=== PATIENT | male | born 1945 | race Caucasian/White ===

== ENCOUNTER 2018-11-28 08:08 | Inpatient (IN) | payer MEDICARE, OTHER ==
[2018-11-28] MEDS ORDERED: Lidocaine 2% Inj (20ml) ONE (08:24)
[2018-11-28] MEDS ORDERED: Phenylephrine 10 mg/ml Inj ONE (08:25)
[2018-11-28] MEDS ORDERED: Iodixanol 320 MG/ML 100 ML BOTTLE IV ONE (08:26)
[2018-11-28] MEDS ORDERED: Iodixanol 320 MG/ML 200 ML BOTTLE IV ONE (08:26)
[2018-11-28] MEDS ORDERED: Nitroglycerin 50mg in D5W 50 MG/250 ML BOTTLE IV ONE (08:26)
[2018-11-28] MEDS ORDERED: Iohexol 350mgl/ml 50 ML ONE (08:26)
--- NOTE | 2018-11-28 08:26 | ED PDOC ---
Arrival/HPI - General Chief Complaint: Respiratory Distress Historian: Patient, EMS EM Caveat: Acuity of Condition - History of Present Illness Narrative History of Present Illness (Text): 11/28/18 08:18 73 year old male, whose past medical history includes diabetes, prostate cancer, and asthma, presents to the emergency department brought in by EMS for STEMI. EMS reports patient called 911 for shortness of breath and but him on CiPAP. EMS also notes administering 324mg of Aspirin, sublingual nitroglycerine, and 20mg of Lasix after noticing ST elevations on EKG. Patient denies chest pain. Daughter (who arrived after the patient was transferred to the clinical laboratory science professor and provided additional hx) states she and the patient were at home preparing to go to his doctor's for a stress test, when he told her to call 911 because he was not feeling well and had trouble breathing. HPI and ROS are limited due to patient's acuity of condition. PMD: Dr. Natalie Seals Time/Duration: Prior to Arrival Symptom Onset: Gradual Symptom Course: Unchanged Activities at Onset: Light Context: Home Past Medical History - Provider Review Nursing Documentation Reviewed: Yes - Cardiac Hx Cardiac Disorders: Yes Hx Hypertension: Yes - Pulmonary Hx Respiratory Disorders: No - Neurological Hx Neurological Disorder: No - HEENT Hx HEENT Disorder: No - Renal Hx Renal Disorder: No - Endocrine/Metabolic Hx Endocrine Disorders: Yes Hx Diabetes Mellitus Type 2: Yes - Hematological/Oncological Hx Blood Disorders: No - Integumentary Hx Dermatological Disorder: No - Musculoskeletal/Rheumatological Hx Musculoskeletal Disorders: No - Gastrointestinal Hx Gastrointestinal Disorders: No - Genitourinary/Gynecological Hx Genitourinary Disorders: No - Psychiatric Hx Psychophysiologic Disorder: No Hx Emotional Abuse: No Hx Physical Abuse: No Hx Substance Use: No - Anesthesia Hx Anesthesia: Yes Hx Anesthesia Reactions: No Hx Malignant Hyperthermia: No - Suicidal Assessment Feels Threatened In Home Enviroment: No Family/Social History - Physician Review Nursing Documentation Reviewed: Yes Family/Social History: No Known Family HX Smoking Status: Never Smoked Hx Alcohol Use: Yes Frequency of alcohol use: Socially Hx Substance Use: No Allergies/Home Meds Allergies/Adverse Reactions: Allergies Penicillins Allergy (Verified 11/28/18 08:28) URTICARIA sesame seed Allergy (Verified 11/28/18 08:28) RASH Home Medications: Home Meds Medication Instructions Recorded Confirmed Carvedilol [Coreg] 6.25 mg PO DAILY 09/06/17 11/28/18 Insulin Aspart [Novolog FLEXPEN] 4 unit SQ TID 09/06/17 11/28/18 Simvastatin [Zocor] 40 mg PO DAILY 09/06/17 11/28/18 Insulin Degludec [Tresiba 40 units SC DAILY 11/28/18 11/28/18 Flextouch U-100] Montelukast [Singulair] 10 mg PO DAILY 11/28/18 11/28/18 Olmesartan Medoxomil [Benicar] 20 mg PO DAILY 11/28/18 11/28/18 Sitagliptin Phos/Metformin HCl 1 tab PO BID 11/28/18 11/28/18 [Janumet 50-1,000 mg Tablet] Review of Systems - Review of Systems Systems not reviewed;Unavailable: Acuity of Condition Cardiovascular: absent: Chest Pain Physical Exam Vital Signs Reviewed: Yes Temperature: Afebrile Blood Pressure: Normal Pulse: Tachycardic Respiratory Rate: Other (dyspneic) Appearance: Positive for: Uncomfortable Mental Status: Positive for: Alert and Oriented X 3 - Systems Exam Head: Present: Atraumatic, Normocephalic Pupils: Present: PERRL Extroacular Muscles: Present: EOMI Conjunctiva: Present: Normal Mouth: Present: Moist Mucous Membranes Neck: Present: Normal Range of Motion Respiratory/Chest: Present: Clear to Auscultation, Good Air Exchange, Respiratory Distress (mild respiratory distress ), Other (dyspneic). No: Accessory Muscle Use Cardiovascular: Present: Normal S1, S2, Tachycardic. No: Murmurs Abdomen: No: Tenderness, Distention, Peritoneal Signs Back: Present: Normal Inspection Upper Extremity: Present: Normal Inspection. No: Cyanosis, Edema Lower Extremity: Present: Normal Inspection. No: Edema Neurological: Present: GCS=15, CN II-XII Intact, Speech Normal Skin: Present: Warm, Dry, Normal Color. No: Rashes Psychiatric: Present: Alert, Oriented x 3, Normal Insight, Normal Concentration Medical Decision Making ED Course and Treatment: 11/28/18 08:10 Impression: 73 year old male who presents to the emergency department complaining of STEMI. Plan: -- Labs -- Chest X-ray -- Briinta -- Heparin -- EKG -- labelling machine operator -- Reassess and disposition Progress Notes: 11/28/18 08:10 Patient seen immediately upon arrival. 11/28/18 08:16 Code heart called. 11/28/18 08:[address] Ramírez who requested administering 180 Brilinta, 5000 bolus of heparin, and then send to catheterization lab. 11/28/18 08:[address] Guallpa, internal medicine religion teacher, who accepts patient into his service. - Lab Interpretations I have reviewed the lab results: Yes - RAD Interpretation Iron Erector: Radiologist - EKG Interpretation EKG Interpretation (Text): 11/28/18 08:33 EKG reviewed by me, shows: Sinus tachycardia 110bpm, normal axis, normal intervals, ST elevation on V2 and V3, and with T wave inversions in the lateral leads. Interpreted by ED Physician: Yes Type: 12 lead EKG - Scribe Statement The provider has reviewed the documentation as recorded by the Scribe Xiomara Cosme Provider Scribe Attestation: All medical record entries made by the Scribe were at my direction and personally dictated by me. I have reviewed the chart and agree that the record accurately reflects my personal performance of the history, physical exam, medical decision making, and the department course for this patient. I have also personally directed, reviewed, and agree with the discharge instructions and disposition. Disposition/Present on Arrival - Present on Arrival Any Indicators Present on Arrival: No History of DVT/PE: No History of Uncontrolled Diabetes: No Urinary Catheter: No History of Decub. Ulcer: No History Surgical Site Infection Following: None - Disposition Have Diagnosis and Disposition been Completed?: Yes Diagnosis: STEMI (ST elevation myocardial infarction) Disposition: HOSPITALIZED Disposition Time: 08:20 Patient Plan: Admission Condition: FAIR
[2018-11-28 08:32] LABS: BASO # 0.06 K/mm3 (0.0-2.0); BASO % 0.4 % (0.0-3.0); EOS # 0.3 (0.0-0.7); HEMOGLOBIN 14.8 g/dL (14.0-18.0); LYMPH # 3.1 (1.2-3.4); LYMPH % 19.2 % (22.0-35.0); MEAN CORPUSCULAR HEMOGLOBIN 28.7 pg (25.0-35.0); MEAN CORPUSCULAR HGB CONC 32.6 g/dl (31.0-37.0); MEAN PLATELET VOLUME 11.6 fl (7.0-11.0); MONO # 0.9 (0.1-0.6); MONO % 5.2 % (1.0-6.0); RBC 5.16 10^6/uL (3.5-6.1); RED CELL DISTRIBUTION WIDTH 14.3 % (11.5-14.5); WHITE BLOOD COUNT 16.2 10^3/uL (4.5-11.0)
[2018-11-28] MEDS ORDERED: Midazolam 2 MG/2 ML VIAL ONE ×2 (08:35→08:40)
[2018-11-28 08:36] LABS: INR 1.07; PROTHROMBIN TIME 12.1 SECONDS (9.4-12.5)
[2018-11-28 08:38] LABS: ALB/GLOB RATIO 1.4 (1.1-1.8); ALBUMIN 4.7 g/dL (3.0-4.8); ALT/SGPT 33 U/L (7-56); AST/SGOT 38 U/L (17-59); BLOOD UREA NITROGEN 14 mg/dL (7-21); CALCIUM 9.2 mg/dL (8.4-10.5); GFR NON-AFRICAN AMERICAN > 60
[2018-11-28 08:50] LABS: TROPONIN I 0.01 ng/mL
[2018-11-28] MEDS ORDERED: Eptifibatide 20 mg/10mL Inj IVP ONE (08:55)
[2018-11-28] MEDS ORDERED: Eptifibatide 0.75 mg/ml 75 MG/100 ML BOTTLE IV ONE (08:55)
[2018-11-28] MEDS ORDERED: Sodium Chloride 0.9% 1,000 ML IV SCH (09:00)
[2018-11-28] MEDS: Eptifibatide 0.75 mg/ml 75 MG/100 ML BOTTLE IV SCH ×3 (09:00→19:08)
--- NOTE | 2018-11-28 09:14 | CP.PCM.PN ---
Subjective - Date & Time of Evaluation Date of Evaluation: 11/28/18 Time of Evaluation: 07:35 - Subjective Subjective: CODE HEART NOTE Code Heart was called at 732AM. Patient was evaluated in Emergency Department. Patient was found to have acute STEMI. EKG showing ST elevations in anterior and lateral leads. Patient taken to labor arbitrator with Dr. Ramírez. Integrlin and Heparin were given as was oxygen supplementation. Patient transported to powerhouse laborer under direct supervision of electronic semiconductor processor team until appropriate transfer of care to Dr. Ramírez. Objective - Vital Signs/Intake and Output Vital Signs (last 24 hours): Temp Pulse Resp BP Pulse Ox 97.1 F L 109 H 26 H 155/81 H 95 11/28/18 08:15 11/28/18 08:15 11/28/18 08:56 11/28/18 08:15 11/28/18 08:56 - Medications Medications: Current Medications Acetaminophen (Tylenol 325mg Tab) 650 mg PO Q4H PRN PRN Reason: Pain, Mild (1-3) Aspirin (Ecotrin) 81 mg PO DAILY [facility] Atorvastatin Calcium (Lipitor) 80 mg PO DIN [facility] Carvedilol (Coreg) 12.5 mg PO Q12H [facility] Furosemide (Lasix) 40 mg IV BID [facility] Eptifibatide (Integrilin) 75 mg in 100 mls @ 19.45 mls/hr IV .Q5H9M [facility]; Prot ocol Stop: 11/29/18 03:01 Sodium Chloride (Sodium Chloride 0.9%) 1,000 mls @ 100 mls/hr IV .Q10H [facility] Stop: 11/28/18 12:01 Losartan Potassium (Cozaar) 25 mg PO DAILY [facility] Ticagrelor (Brilinta) 90 mg PO BID [facility] - Labs Labs: 11/28/18 08:23 11/28/18 08:23 PT 12.1 SECONDS (9.4-12.5) 11/28/18 08:23 INR 1.07 11/28/18 08:23
--- NOTE | 2018-11-28 09:18 | CP.PCM.CON ---
<Amanuel Avila - Last Filed: 11/28/18 12:33> History of Present Illness - History of Present Illness History of Present Illness: CRITICAL CARE CONSULT NOTE FOR DR. ABDULLAHI Avila PGY1 73 uzbek speaking M with PMhx of IDDM, HTN, HLD, Prostate ca s/p radiation, asthma presented to [facility] ED bib EMS for SOB without associated chest pain. Pt found to have ST elevation in V2-V3 with t-wave inversions on lateral leads on EKG. EMS reported administering 324mg of Aspirin, SL nitroglycerine & 20mg of Lasix. Upon arrival to ED, pt was taken to lab animal technologist and cardiac cath with placement of KELLY into LAD was performed. Post-procedure, pt reports SOB and was placed on BiPAP. Pt was transferred to CCU. Upon arrival to CCU, CXR revealed pulmonary edema. Upon interview, pt is on BiPAP, however reports no complaints. 12 point ROS negative. PMH: IDDM, HTN, HLD, Prostate ca s/p radiation, asthma All: PCN (swelling), sesame seed (hives) PSH: umbilical hernia repair SH: 25 pack year smoking history. No ETOH/illicit druge use FH: noncontributory Meds: Levemir 40u, Novolog 4u, Janumet (50mg/1,000mg), Olmesartan 20mg, Montelukast 10mg, Simvastatin 40mg, Carvedilol 6.25mg PMD: Dr. Natalie Seals- [place] Review of Systems - Review of Systems Review of Systems: per HPI Past Patient History - Past Medical History & Family History Past Medical History?: Yes - Past Social History Smoking Status: Never Smoked - CARDIAC Hx Cardiac Disorders: Yes Hx Hypertension: Yes - PULMONARY Hx Respiratory Disorders: No - NEUROLOGICAL Hx Neurological Disorder: No - HEENT Hx HEENT Problems: No - RENAL Hx Chronic Kidney Disease: No - ENDOCRINE/METABOLIC Hx Endocrine Disorders: Yes Hx Diabetes Mellitus Type 2: Yes - HEMATOLOGICAL/ONCOLOGICAL Hx Blood Disorders: No - INTEGUMENTARY Hx Dermatological Problems: No - MUSCULOSKELETAL/RHEUMATOLOGICAL Hx Musculoskeletal Disorders: No - GASTROINTESTINAL Hx Gastrointestinal Disorders: No - GENITOURINARY/GYNECOLOGICAL Hx Genitourinary Disorders: No - PSYCHIATRIC Hx Psychophysiologic Disorder: No Hx Emotional Abuse: No Hx Physical Abuse: No Hx Substance Use: No - SURGICAL HISTORY Hx Surgeries: Yes Hx Herniorrhaphy: Yes - ANESTHESIA Hx Anesthesia: Yes Hx Anesthesia Reactions: No Hx Malignant Hyperthermia: No Meds Allergies/Adverse Reactions: Allergies Allergy/AdvReac Type Severity Reaction Status Date / Time Penicillins Allergy URTICARIA Verified 11/28/18 08:28 sesame seed Allergy RASH Verified 11/28/18 08:28 - Medications Medications: Current Medications Acetaminophen (Tylenol 325mg Tab) 650 mg PO Q4H PRN PRN Reason: Pain, Mild (1-3) Aspirin (Ecotrin) 81 mg PO DAILY [facility] Atorvastatin Calcium (Lipitor) 80 mg PO DIN OMAR Carvedilol (Coreg) 12.5 mg PO Q12H OMAR Furosemide (Lasix) 40 mg IV BID OMAR Eptifibatide (Integrilin) 75 mg in 100 mls @ 19.45 mls/hr IV .Q5H9M [facility]; Protocol Stop: 11/29/18 03:01 Sodium Chloride (Sodium Chloride 0.9%) 1,000 mls @ 100 mls/hr IV .Q10H [facility] Stop: 11/28/18 12:01 Losartan Potassium (Cozaar) 25 mg PO DAILY [facility] Ticagrelor (Brilinta) 90 mg PO BID [facility] Physical Exam - Constitutional Appears: Well, Non-toxic, No Acute Distress - Head Exam Head Exam: NORMAL INSPECTION, NORMOCEPHALIC - Eye Exam Eye Exam: EOMI, Normal appearance - ENT Exam ENT Exam: Mucous Membranes Moist, Normal Exam - Neck Exam Neck exam: Positive for: Normal Inspection - Respiratory Exam Respiratory Exam: Decreased Breath Sounds Additional comments: on BiPAP - Cardiovascular Exam Cardiovascular Exam: REGULAR RHYTHM, +S1, +S2 - GI/Abdominal Exam GI & Abdominal Exam: Soft. absent: Distended, Guarding Additional comments: R groin dressing in place - Extremities Exam Extremities exam: Positive for: normal inspection. Negative for: calf tenderness - Back Exam Back exam: NORMAL INSPECTION - Neurological Exam Neurological exam: Alert, Oriented x3 - Psychiatric Exam Psychiatric exam: Normal Affect, Normal Mood - Skin Skin Exam: Dry, Intact, Warm Results - Vital Signs Recent Vital Signs: Last Vital Signs Temp 97.1 F L 11/28/18 08:15 Pulse 109 H 11/28/18 08:15 Resp 26 H 11/28/18 08:56 BP 155/81 H 11/28/18 08:15 Pulse Ox 95 11/28/18 08:56 - Labs Result Diagrams: 11/28/18 08:23 11/28/18 08:23 Labs: Laboratory Results - last 24 hr 11/28/18 11/28/18 11/28/18 08:23 08:23 08:23 WBC 16.2 H RBC 5.16 Hgb 14.8 Hct 45.4 MCV 88.0 MCH 28.7 MCHC 32.6 RDW 14.3 Plt Count 290 MPV 11.6 H Neut % (Auto) 73.2 H Lymph % (Auto) 19.2 L Wayne % (Auto) 5.2 Eos % (Auto) 2.0 Baso % (Auto) 0.4 Lymph # (Auto) 3.1 Wayne # (Auto) 0.9 H Eos # (Auto) 0.3 Baso # (Auto) 0.06 Absolute Neuts (auto) 11.87 H PT 12.1 INR 1.07 Sodium 139 Potassium 4.3 Chloride 102 Carbon Dioxide 24 Anion Gap 17 BUN 14 Creatinine 0.9 Est GFR ( Amer) > 60 Est GFR (Non-Af Amer) > 60 Random Glucose 227 H Calcium 9.2 Total Bilirubin 0.6 AST 38 ALT 33 Alkaline Phosphatase 69 Lactate Dehydrogenase 564 Total Creatine Kinase 117 Troponin I 0.01 Total Protein 8.0 Albumin 4.7 Globulin 3.4 Albumin/Globulin Ratio 1.4 Assessment & Plan - Assessment and Plan (Free Text) Assessment: 73 y/o M PMH IDDM, HTN, HLD, Prostate ca s/p radiation, asthma admitted to CCU s/p cardiac catheterization with KELLY placement in LAD. Plan: Neuro: AxO x 3 GCS Reorient regularly Cardiovascular: CAD s/p cardiac cath w KELLY in LAD continue eftifibatide drip for 18 hours post cath continue aspirin continue carvedilol continue atorvastatin start brilinta in pm HTN continue losartan Pulmonary: wean off of BiPAP CXR reveals pulmonary edema discontinue IVF lasix stat following by scheduled lasix monitor respiratory status Endocrine: IDDM Insulin sliding scale DVT/GI PPx: SCD/Protonix Case seen, examined and discussed with attending physician, Dr. Abdullahi Avila PGY1 <John Yoo - Last Filed: 11/28/18 13:19> Meds - Medications Medications: Current Medications Acetaminophen (Tylenol 325mg Tab) 650 mg PO Q4H PRN PRN Reason: Pain, Mild (1-3) Aspirin (Ecotrin) 81 mg PO DAILY [facility] Atorvastatin Calcium (Lipitor) 80 mg PO DIN [facility] Carvedilol (Coreg) 12.5 mg PO Q12H [facility] Last Admin: 11/28/18 09:43 Dose: 12.5 mg Furosemide (Lasix) 40 mg IV BID [facility] Last Admin: 11/28/18 09:36 Dose: 40 mg Eptifibatide (Integrilin) 75 mg in 100 mls @ 19.45 mls/hr IV .Q5H9M [facility]; Protocol Stop: 11/29/18 03:01 Last Admin: 11/28/18 09:00 Dose: 19.45 mls/hr Insulin Human Regular (Humulin R Med) 0 units SC ACHS [facility]; Protocol Last Admin: 11/28/18 12:09 Dose: 3 units Losartan Potassium (Cozaar) 25 mg PO DAILY [facility] Last Admin: 11/28/18 09:43 Dose: 25 mg Pantoprazole Sodium (Protonix Inj) 40 mg IVP DAILY [facility] Ticagrelor (Brilinta) 90 mg PO BID [facility] Results - Vital Signs Recent Vital Signs: Last Vital Signs Temp 97.1 F L 11/28/18 08:15 Pulse 81 11/28/18 11:00 Resp 20 11/28/18 11:00 BP 113/54 L 11/28/18 11:00 Pulse Ox 99 11/28/18 11:00 - Labs Result Diagrams: 11/28/18 08:23 11/28/18 08:23 Labs: Laboratory Results - last 24 hr 11/28/18 11/28/18 11/28/18 08:15 08:23 08:23 WBC 16.2 H RBC 5.16 Hgb 14.8 Hct 45.4 MCV 88.0 MCH 28.7 MCHC 32.6 RDW 14.3 Plt Count 290 MPV 11.6 H Neut % (Auto) 73.2 H Lymph % (Auto) 19.2 L Wayne % (Auto) 5.2 Eos % (Auto) 2.0 Baso % (Auto) 0.4 Lymph # (Auto) 3.1 Wayne # (Auto) 0.9 H Eos # (Auto) 0.3 Baso # (Auto) 0.06 Absolute Neuts (auto) 11.87 H PT 12.1 INR 1.07 Sodium Potassium Chloride Carbon Dioxide Anion Gap BUN Creatinine Est GFR ( Amer) Est GFR (Non-Af Amer) POC Glucose (mg/dL) 251 H Random Glucose Calcium Total Bilirubin AST ALT Alkaline Phosphatase Lactate Dehydrogenase Total Creatine Kinase Troponin I Total Protein Albumin Globulin Albumin/Globulin Ratio 11/28/18 11/28/18 08:23 11:09 WBC RBC Hgb Hct MCV MCH MCHC RDW Plt Count MPV Neut % (Auto) Lymph % (Auto) Wayne % (Auto) Eos % (Auto) Baso % (Auto) Lymph # (Auto) Wayne # (Auto) Eos # (Auto) Baso # (Auto) Absolute Neuts (auto) PT INR Sodium 139 Potassium 4.3 Chloride 102 Carbon Dioxide 24 Anion Gap 17 BUN 14 Creatinine 0.9 Est GFR ( Amer) > 60 Est GFR (Non-Af Amer) > 60 POC Glucose (mg/dL) 230 H Random Glucose 227 H Calcium 9.2 Total Bilirubin 0.6 AST 38 ALT 33 Alkaline Phosphatase 69 Lactate Dehydrogenase 564 Total Creatine Kinase 117 Troponin I 0.01 Total Protein 8.0 Albumin 4.7 Globulin 3.4 Albumin/Globulin Ratio 1.4 Assessment & Plan - Assessment and Plan (Free Text) Plan: Patient seen and examined on rounds, with resident, agree with note with following additions/exceptions: Patient is 73yo male with PMHx IDDM, HTN, HLD, Prostate ca s/p radiation, asthma presented to [facility] ED bib EMS for SOB without associated chest pain. Found to have STEMI in V2-V3 with t-wave inversions on lateral leads on EKG, taken to lab animal technologist and cardiac cath with placement of KELLY into LAD Patient was also placed on BIPAP 12/5/50% Labs, imaging, chart reviewed CXR with pulm edema IVF stopped, LAsix 40mg IV BID started ECHO pending Currently afebrile, BP stable, comfortable in NAD, on BIPAP 12/5/50%, sat 98% CHF, acute exacerbation Pulm Edema STEMI CP SOB DM Recommend: - cont with BIPAP as tolerated, wean off, goal sat 90% - duonebs PRN - NO ID issues - BP control - ASA, Plavix, Statin, BB - Lasix 40mg IV BID - DC IVF - FS control - check lipid panel, TSH, HgbA1C - GI ppx - DVT ppx - Monitor in MICU Critical care time 40 minutes
--- NOTE | 2018-11-28 10:47 | RAD ---
Date of service: 11/28/2018 HISTORY: sob COMPARISON: No prior. FINDINGS: LUNGS: Pulmonary edema PLEURA: No significant pleural effusion identified, no pneumothorax apparent. CARDIOVASCULAR: No aortic atherosclerotic calcification present. Normal cardiac size. Severe vascular congestion and pulmonary edema OSSEOUS STRUCTURES: No significant abnormalities. VISUALIZED UPPER ABDOMEN: Normal. OTHER FINDINGS: None. IMPRESSION: Pulmonary edema
[2018-11-28 11:27] VITALS: BMI 40.7
[2018-11-28] MEDS: Insulin Reg-MEDIUM-Coverage SC SCH ×3 (12:09→22:10)
--- NOTE | 2018-11-28 14:03 | CARDCATH ---
PROCEDURE DATE: 11/28/2018 PROCEDURES: 1. Selective left and right coronary angiography. 2. Left ventriculography. 3. Percutaneous coronary intervention of mid left anterior descending artery with drug-eluting stent. 4. Right femoral arteriography. 5. Angio-Seal deployment. HISTORY: This is a 73-year-old man, with history of hypertension, diabetes, who was brought in by ambulance with onset of acute shortness of breath. EKG showed evidence of ST elevations anteriorly. Emergency catheterization was advised. INDICATION: Acute myocardial infarction and pulmonary edema. FINDINGS: HEMODYNAMICS: The aortic pressure was 140/70 and left ventricular pressure 140/22. CORONARY ANATOMY: 1. The left main stem was long and normal. 2. Left anterior descending artery was occluded in its mid portion. Distal collaterals were not seen. 3. The left circumflex artery was large and gave rise to two moderate sized obtuse marginal branches. Circumflex system was free of disease. 4. The right coronary artery was dominant and of moderate size. This had diffuse 50% stenosis in its proximal segment. The distal vessels had no evidence of significant disease. LEFT VENTRICULOGRAPHY: A hand injection was performed in the left ventricle. The ventricle appeared somewhat dilated with evidence of moderate anterolateral hypokinesis and possible apical dyskinesis. There was no aortic valve gradient noted on catheter pullback. Mitral regurgitation was not assessed. CORONARY INTERVENTION: The patient received 5000 units of intravenous heparin in the emergency room and the ACT was 220 seconds. Additional 1000 units of heparin was administered. A 3.5 EBU guide catheter was utilized to cannulate the left coronary system. The lesion in the LAD was successfully crossed with the use of a Repton wire. Following this, initial inflations were performed with a 2.5 x 12 mm balloon to restart distal flow. The distal vessel appeared to be somewhat diffusely diseased and underfilling. Intracoronary nitroglycerin was administered. Subsequently, a 2.75 x 18 mm Resolute Samson drug-eluting stent was advanced into the site of stenosis and this was inflated to 12 atmospheres for 45 seconds. WILLY grade 3 flow was 0 prior to intervention and 3 at the end of the intervention. Intracoronary nitroglycerin was again infused. Mild diffuse distal LAD disease was noted. Following the procedure, IV Integrilin was administered as well. FEMORAL ARTERIOGRAPHY: Right femoral arteriogram was performed in the REESE projection. This revealed no evidence of significant disease and appropriate level of arterial puncture. The puncture site was then closed with deployment of an Angio-Seal device. CONCLUSIONS: 1. Acute anterior myocardial infarction secondary to LAD occlusion. 2. Successful PCI of mid LAD with drug-eluting stent as described above. 3. Probable moderate LV dysfunction. RECOMMENDATIONS: IV Integrilin will be continued for 18 hours. Aspirin and Brilinta therapy have been initiated. Beta nickie statin and angiotensin receptor nickie therapy will be initiated as well. Serial enzymes will be obtained. Electrocardiogram will be obtained as well. Aggressive risk factor control is advised. Russel Ramírez MD MTDD
--- NOTE | 2018-11-28 15:26 | CON ---
DATE: 11/28/2018 REQUESTING PHYSICIAN: Dr. Radha Figueredo REASON FOR CONSULTATION: Respiratory distress, abnormal electrocardiogram. HISTORY: This is a 73-year-old man with no known prior cardiac history but a history of hypertension and diabetes, who was brought to emergency room urgently with complaints of severe dyspnea. He apparently denied any chest pain upon arrival; however, he had ST elevations noted in the anterior leads. Emergency catheterization has been recommended. Rest of the history is obtained via the chart and his family members. He is in marked respiratory distress and was placed on a BiPAP. He does have a reported history of asthma in the past as well as prostate cancer. He apparently was scheduled for a stress test later today. PAST MEDICAL HISTORY: His past history is notable for the problems mentioned above. MEDICATIONS AT HOME: Included carvedilol 6.25 mg daily, insulins, Zocor 40 mg daily, Tresiba, Singulair 10 mg daily, Benicar 20 mg daily and Janumet mg b.i.d. ALLERGIES: HE HAS HAD A REACTION TO PENICILLIN WITH A RASH IN THE PAST. SOCIAL HISTORY: He does not smoke. He drinks occasionally. He is , lives with his . FAMILY HISTORY: Both parents are from age-related illness. REVIEW OF SYSTEMS: A 10-point review of systems is otherwise unremarkable. PHYSICAL EXAMINATION: GENERAL: He is an overweight middle-aged man who is in moderate respiratory distress. VITAL SIGNS: His blood pressure was 160/90 with a pulse of 98, respirations are 26. He is afebrile. HEENT: BiPAP mask is in place. CHEST: Bilateral scattered rales heard. HEART: PMI is displaced laterally. Soft tones noted. ABDOMEN: Soft, obese with normoactive bowel sounds. EXTREMITIES: No edema. SKIN: Warm and dry. PSYCHIATRIC: Unable to fully assess. NEUROLOGIC: Moving all four extremities. DIAGNOSTIC DATA: Troponin 0.01, potassium 4.3, BUN and creatinine 14 and 0.9, glucose 227. White count 16.2, hemoglobin and hematocrit 14.8 and 45.4 with a platelet count 290,000. PT/INR 12.1 and 1.07. Chest x-ray reveals fairly normal cardiac silhouette with bilateral pulmonary congestive changes. Electrocardiogram reveals sinus rhythm with a baseline artifact; however, there appears to be clear ST elevations in V1 through V4. IMPRESSION: 1. Acute anterior myocardial infarction with ischemic congestive heart failure. 2. Risk factors of hypertension and diabetes. RECOMMENDATIONS: The patient will report emergently to cardiac catheterization lab and undergo urgent catheterization and revascularization if suitable anatomy is found. The patient has been loaded with aspirin and Brilinta as well as heparin. Further plans will be made based upon the results of his catheterization. Russel Ramírez MD MTDD
--- NOTE | 2018-11-28 15:33 | CP.PCM.CON ---
History of Present Illness - History of Present Illness History of Present Illness: 73 year old male with PMH of DM, HTN, morbid obesity with BMI 41, asthma, prostate cancer S/P radiation came in to [facility] because of chest pain associated with dry cough and shortness of breath which only started today. He was apparently doing ok prior to the episode. He denies having fever or chills, no nausea or vomiting, no headache or dizziness, no abdominal pain, no diarrhea, no dysuria, no sore throat, no dysphagia, no rhinorrhea. In th ED, he was found to have ST elevations on EKG and was brought immediately to the mushroom laborer and PCI was done with stents placed in the LAD. When he came in he had leukocytosis and Infectious diseases consult is requested to further evaluate and manage. Review of Systems - Review of Systems All systems: reviewed and no additional remarkable complaints except (as per HPI) Past Patient History - Past Medical History & Family History Past Medical History?: Yes - Past Social History Smoking Status: Never Smoked - CARDIAC Hx Cardiac Disorders: Yes Hx Hypertension: Yes - PULMONARY Hx Respiratory Disorders: No - NEUROLOGICAL Hx Neurological Disorder: No - HEENT Hx HEENT Problems: No - RENAL Hx Chronic Kidney Disease: No - ENDOCRINE/METABOLIC Hx Endocrine Disorders: Yes Hx Diabetes Mellitus Type 2: Yes - HEMATOLOGICAL/ONCOLOGICAL Hx Blood Disorders: No - INTEGUMENTARY Hx Dermatological Problems: No - MUSCULOSKELETAL/RHEUMATOLOGICAL Hx Musculoskeletal Disorders: No - GASTROINTESTINAL Hx Gastrointestinal Disorders: No - GENITOURINARY/GYNECOLOGICAL Hx Genitourinary Disorders: No - PSYCHIATRIC Hx Psychophysiologic Disorder: No Hx Emotional Abuse: No Hx Physical Abuse: No Hx Substance Use: No - SURGICAL HISTORY Hx Surgeries: Yes Hx Herniorrhaphy: Yes - ANESTHESIA Hx Anesthesia: Yes Hx Anesthesia Reactions: No Hx Malignant Hyperthermia: No Meds Allergies/Adverse Reactions: Allergies Allergy/AdvReac Type Severity Reaction Status Date / Time Penicillins Allergy URTICARIA Verified 11/28/18 08:28 sesame seed Allergy RASH Verified 11/28/18 08:28 - Medications Medications: Current Medications Acetaminophen (Tylenol 325mg Tab) 650 mg PO Q4H PRN PRN Reason: Pain, Mild (1-3) Aspirin (Ecotrin) 81 mg PO DAILY [facility] Atorvastatin Calcium (Lipitor) 80 mg PO DIN [facility] Carvedilol (Coreg) 12.5 mg PO Q12H [facility] Last Admin: 11/28/18 09:43 Dose: 12.5 mg Furosemide (Lasix) 40 mg IV BID [facility] Last Admin: 11/28/18 09:36 Dose: 40 mg Eptifibatide (Integrilin) 75 mg in 100 mls @ 19.45 mls/hr IV .Q5H9M [facility]; Protocol Stop: 11/29/18 03:01 Last Admin: 11/28/18 14:07 Dose: 19.45 mls/hr Insulin Human Regular (Humulin R Med) 0 units SC [facility]; Protocol Last Admin: 11/28/18 12:09 Dose: 3 units Insulin Human Regular (Humulin R Med) 0 units SC [facility]; Protocol Losartan Potassium (Cozaar) 25 mg PO DAILY [facility] Last Admin: 11/28/18 09:43 Dose: 25 mg Pantoprazole Sodium (Protonix Inj) 40 mg IVP DAILY [facility] Ticagrelor (Brilinta) 90 mg PO BID [facility] Physical Exam - Constitutional Appears: No Acute Distress, Chronically Ill - Head Exam Head Exam: NORMAL INSPECTION - ENT Exam ENT Exam: Mucous Membranes Moist - Neck Exam Neck exam: Negative for: Lymphadenopathy, Meningismus - Respiratory Exam Respiratory Exam: Decreased Breath Sounds, Rales (scattered) - Cardiovascular Exam Cardiovascular Exam: +S1, +S2 - GI/Abdominal Exam GI & Abdominal Exam: Soft. absent: Tenderness Results - Vital Signs Recent Vital Signs: Last Vital Signs Temp 97.1 F L 11/28/18 08:15 Pulse 81 11/28/18 11:00 Resp 20 11/28/18 11:00 BP 113/54 L 11/28/18 11:00 Pulse Ox 99 11/28/18 11:00 - Labs Result Diagrams: 11/28/18 08:23 11/28/18 08:23 Labs: Laboratory Results - last 24 hr 11/28/18 11/28/18 11/28/18 08:15 08:23 08:23 WBC 16.2 H RBC 5.16 Hgb 14.8 Hct 45.4 MCV 88.0 MCH 28.7 MCHC 32.6 RDW 14.3 Plt Count 290 MPV 11.6 H Neut % (Auto) 73.2 H Lymph % (Auto) 19.2 L [place] % (Auto) 5.2 Eos % (Auto) 2.0 Baso % (Auto) 0.4 Lymph # (Auto) 3.1 [place] # (Auto) 0.9 H Eos # (Auto) 0.3 Baso # (Auto) 0.06 Absolute Neuts (auto) 11.87 H PT 12.1 INR 1.07 Sodium Potassium Chloride Carbon Dioxide Anion Gap BUN Creatinine Est GFR ( Amer) Est GFR (Non-Af Amer) POC Glucose (mg/dL) 251 H Random Glucose Calcium Total Bilirubin AST ALT Alkaline Phosphatase Lactate Dehydrogenase Total Creatine Kinase Troponin I Total Protein Albumin Globulin Albumin/Globulin Ratio 11/28/18 11/28/18 08:23 11:09 WBC RBC Hgb Hct MCV MCH MCHC RDW Plt Count MPV Neut % (Auto) Lymph % (Auto) [place] % (Auto) Eos % (Auto) Baso % (Auto) Lymph # (Auto) [place] # (Auto) Eos # (Auto) Baso # (Auto) Absolute Neuts (auto) PT INR Sodium 139 Potassium 4.3 Chloride 102 Carbon Dioxide 24 Anion Gap 17 BUN 14 Creatinine 0.9 Est GFR ( Amer) > 60 Est GFR (Non-Af Amer) > 60 POC Glucose (mg/dL) 230 H Random Glucose 227 H Calcium 9.2 Total Bilirubin 0.6 AST 38 ALT 33 Alkaline Phosphatase 69 Lactate Dehydrogenase 564 Total Creatine Kinase 117 Troponin I 0.01 Total Protein 8.0 Albumin 4.7 Globulin 3.4 Albumin/Globulin Ratio 1.4 Assessment & Plan - Assessment and Plan (Free Text) Plan: Assessment Systemic Inflammatory response syndrome due to STEMI S/P PCI with stenting of LAD, so far no evidence of infection identified, patient is hemodynamically stable currently DM HTN morbid obesity with BMI 41 asthma prostate cancer S/P radiation Plan Will monitor off antibiotics; follow up blood cx and urine cx CXR reviewed, which is more consistent with pulmonary edema patient has currently no symptoms suggestive of infection follow up further recommendations of Cardiology will trend WBC count
[2018-11-28] MEDS ORDERED: Insulin Reg-MEDIUM-Coverage SC SCH (16:30)
[2018-11-28 18:24] LABS: CK MB% 7.1 % (2.5-3.0); CK-MB 49.5 ng/mL (0.0-3.6); TROPONIN I 17.1 ng/mL
--- NOTE | 2018-11-28 23:38 | HP ---
DATE OF EXAM: 11/28/2018 HISTORY OF PRESENT ILLNESS: I am on-call for emergency room and there is a patient Herb who came in, was taken to cardiac cath. He had stents placed in his LAD, but Dr. Ramírez, the bath attendant, his primary care physician does not come to this hospital. This is a 73-year-old man who presents with past medical history of diabetes, prostate cancer, asthma. He has had STEMI, shortness of breath, 911 was called. He was given 324 mg aspirin, sublingual nitro, Lasix 20 mg. He was taken to the operations label clerk and stents placed. He is now in the Intensive Care Unit. He had chest pain and shortness of breath. ALLERGIES: HE IS ALLERGIC TO PENICILLIN MEDICATIONS: He is on Coreg, FlexPen, Zocor, Tarceva, Singulair, Benicar, and metformin. SOCIAL HISTORY: No smoking. Does drink alcohol socially. No substance abuse. REVIEW OF SYSTEMS: No acute vision or hearing changes. No sore throat. He did have chest pain, severe shortness of breath, but pressured shortness of breath, clearly catches breath, little nauseousness. No vomiting. No constipation, diarrhea. No leg pains. PHYSICAL EXAMINATION: GENERAL: He is comfortable at this time, status post cardiac cath. VITAL SIGNS: He has a 98.4 temperature, 80 pulse, 132/61 blood pressure, 15 respiratory rate, 97% O2 sat on 3 liters nasal cannula. HEENT: His head is atraumatic, normocephalic. Pupils are equal and reactive to light and accommodation. Extraocular muscles are intact. Throat is moist. NECK: Supple. HEART: Regular rate. Normal S1, S2. Lungs: Decreased breath sounds. Poor inspiration, but clear to auscultation. HEENT: Text. NECK: Text. CARDIOPULMONARY: Text. LUNGS: Text. ABDOMEN: Soft, nontender. Positive bowel sounds. EXTREMITIES: Have no edema. NEUROLOGIC: GCS is 15. Cranial nerves II through XII grossly intact. Alert and oriented x3. SKIN: Warm and dry. No apparent rashes or ulcers I could see. LYMPHS: Thyroid midline. No palpable appreciable lymphadenopathy. LABORATORY DATA: He did have multiple tests done. Chest x-ray showed pulmonary edema. He has a 16.2 white count, 14.8 hemoglobin, 45.4 hematocrit with 290 platelets. He had a 1.07 INR. Sodium 139, potassium 4.3, BUN 14, creatinine 0.9, GFR is greater than 60. His blood sugars are 251, 227 and 230. I have put him on insulin coverage. Calcium 9.2, total bili is 0.6, AST is 30, ALT 33, alk phos 69. His lactate dehydrogenase of 754. Total creatine kinase is 694 all after treatment. Troponin I was 70.1. Troponin is 8. IMPRESSION AND PLAN: He has consults with Infectious Disease for his elevated white count and Cardiology, status post cardiac cath and stent placement. He is currently on Brilinta, Coreg, Cozaar, Ecotrin, insulin and iV, Lasix IV 40 b.i.d., Lipitor, Protonix IV, and Tylenol. He is having some right back pain which started when he got to the hospital bed which I think is related to the hospital bed. His chest x-ray was clear. Lung sounds fine. We will keep an eye on that. He is here for coronary artery disease, leukocytosis, pulmonary edema and myocardial infarction and he is doing quite well at this time. Phil Guallpa DO MTDD
[2018-11-29 01:42] LABS: CK MB% 4.9 % (2.5-3.0); CK-MB 30.6 ng/mL (0.0-3.6); TROPONIN I 18.3 ng/mL
[2018-11-29 06:25] LABS: BASO # 0.02 K/mm3 (0.0-2.0); BASO % 0.2 % (0.0-3.0); EOS # 0.2 (0.0-0.7); EOS % 1.7 % (1.5-5.0); LYMPH # 1.5 (1.2-3.4); LYMPH % 15.2 % (22.0-35.0); MEAN CELL VOLUME 86.2 fl (80.0-105.0); MEAN CORPUSCULAR HEMOGLOBIN 28.1 pg (25.0-35.0); MEAN CORPUSCULAR HGB CONC 32.6 g/dl (31.0-37.0); MEAN PLATELET VOLUME 11.5 fl (7.0-11.0); MONO # 0.9 (0.1-0.6); MONO % 8.9 % (1.0-6.0); RBC 4.56 10^6/uL (3.5-6.1); RED CELL DISTRIBUTION WIDTH 14.4 % (11.5-14.5); WHITE BLOOD COUNT 9.5 10^3/uL (4.5-11.0)
[2018-11-29 06:32] LABS: HEMOGLOBIN 12.8 g/dL (14.0-18.0)
[2018-11-29 07:14] LABS: BLOOD UREA NITROGEN 16 mg/dL (7-21); CALCIUM 9.3 mg/dL (8.4-10.5); GFR NON-AFRICAN AMERICAN > 60
[2018-11-29] MEDS: Insulin Reg-MEDIUM-Coverage SC SCH ×4 (07:30→22:10)
--- NOTE | 2018-11-29 07:42 | CP.CCUPN ---
<Amanuel Avila - Last Filed: 11/29/18 09:54> CCU Subjective - Physician Review Subjective (Free Text): CRITICAL CARE PROGRESS NOTE FOR DR. ABDULLAHI Avila PGY1 Pt seen and examined in ICU this am. No acute events overnight. Pt tolerated diet. Resting comfortably on NC. Denies 12 point ROS CCU Objective - Vital Signs / Intake & Output Vital Signs (Last 4 hours): Vital Signs Temp Pulse Resp BP Pulse Ox 11/29/18 06:00 81 11/29/18 05:00 81 22 143/73 98 11/29/18 04:45 77 98 11/29/18 04:30 78 22 95 11/29/18 04:15 74 21 97 11/29/18 04:00 98.2 F 119/72 11/29/18 03:59 81 24 97 11/29/18 03:45 78 17 98 Intake and Output (Last 8hrs): Intake & Output 11/28/18 11/29/18 11/29/18 22:59 06:59 14:59 Intake Total 640 320 Output Total 1575 1200 Balance -935 -880 Weight 102.965 kg Intake: IV 160 160 Left Hand 160 integrillin 160 Oral 480 160 Output: Urine 1575 1200 Urine, Voided 1575 1200 Other: # Voids Urine, Voided 3 # Bowel Movements 1 0 - Physical Exam Head: Positive for: Atraumatic, Normocephalic Pupils: Positive for: PERRL Extroacular Muscles: Positive for: EOMI Conjunctiva: Positive for: Normal Mouth: Positive for: Moist Mucous Membranes Neck: Positive for: Normal Range of Motion Respiratory/Chest: Positive for: Clear to Auscultation, Good Air Exchange, Respiratory Distress (mild respiratory distress ), Other (dyspneic). Negative for: Accessory Muscle Use Cardiovascular: Positive for: Normal S1, S2, Tachycardic. Negative for: Murmurs Abdomen: Negative for: Tenderness, Distention, Peritoneal Signs Back: Positive for: Normal Inspection Upper Extremity: Positive for: Normal Inspection. Negative for: Cyanosis, Edema Lower Extremity: Positive for: Normal Inspection. Negative for: Edema Neurological: Positive for: GCS=15, CN II-XII Intact, Speech Normal Skin: Positive for: Warm, Dry, Normal Color. Negative for: Rashes Psychiatric: Positive for: Alert, Oriented x 3, Normal Insight, Normal Concentration - Medications Active Medications: Active Medications Generic Name Dose Route Start Last Admin Trade Name Freq PRN Reason Stop Dose Admin Acetaminophen 650 mg 11/28/18 08:54 11/28/18 20:45 Tylenol 325mg Tab PO 650 mg Q4H PRN Administration Pain, Mild (1-3) Aspirin 81 mg 11/29/18 10:00 Ecotrin PO DAILY [facility] Atorvastatin Calcium 80 mg 11/28/18 17:00 11/28/18 17:45 Lipitor PO 80 mg DIN NATALIA Administration Carvedilol 12.5 mg 11/28/18 09:00 11/28/18 20:44 Coreg PO 12.5 mg Q12H NATALIA Administration Furosemide 40 mg 11/28/18 10:00 11/28/18 17:46 Lasix IV 40 mg BID NATALIA Administration Insulin Human Regular 0 units 11/28/18 11:30 11/28/18 17:00 Humulin R Med SC Not Given ACHS [facility] Protocol Losartan Potassium 25 mg 11/28/18 10:00 11/28/18 09:43 Cozaar PO 25 mg DAILY NATALIA Administration Pantoprazole Sodium 40 mg 11/28/18 12:30 11/28/18 17:45 Protonix Inj IVP 40 mg DAILY NATALIA Administration Ticagrelor 90 mg 11/28/18 18:00 11/28/18 17:45 Brilinta PO 90 mg BID NATALIA Administration - Patient Studies Lab Studies: Lab Studies 11/29/18 11/29/18 11/29/18 Range/Units 05:30 05:30 01:02 WBC 9.5 D (4.5-11.0) 10^3/uL RBC 4.56 (3.5-6.1) 10^6/uL Hgb 12.8 L D (14.0-18.0) g/dL Hct 39.3 L (42.0-52.0) % MCV 86.2 (80.0-105.0) fl MCH 28.1 (25.0-35.0) pg MCHC 32.6 (31.0-37.0) g/dl RDW 14.4 (11.5-14.5) % Plt Count 223 (120.0-450.0) 10^3/uL MPV 11.5 H (7.0-11.0) fl Neut % (Auto) 74.0 H (50.0-68.0) % Lymph % (Auto) 15.2 L (22.0-35.0) % Addison % (Auto) 8.9 H (1.0-6.0) % Eos % (Auto) 1.7 (1.5-5.0) % Baso % (Auto) 0.2 (0.0-3.0) % Lymph # (Auto) 1.5 (1.2-3.4) Addison # (Auto) 0.9 H (0.1-0.6) Eos # (Auto) 0.2 (0.0-0.7) Baso # (Auto) 0.02 (0.0-2.0) K/mm3 Absolute Neuts (auto) 7.03 H (1.4-6.5) PT (9.4-12.5) SECONDS INR Sodium 136 (132-148) mmol/L Potassium 3.8 (3.6-5.0) mmol/L Chloride 99 (98-107) mmol/L Carbon Dioxide 30 (21-33) mmol/L Anion Gap 11 (10-20) BUN 16 (7-21) mg/dL Creatinine 1.0 (0.8-1.5) mg/dl Est GFR ( Amer) > 60 Est GFR (Non-Af Amer) > 60 POC Glucose (mg/dL) (65-110) mg/dL Random Glucose 159 H (70-110) mg/dL Calcium 9.3 (8.4-10.5) mg/dL Total Bilirubin (0.2-1.3) mg/dL AST (17-59) U/L ALT (7-56) U/L Alkaline Phosphatase (38-126) U/L Lactate Dehydrogenase 873 H (333-699) U/L Total Creatine Kinase 619 H (35-230) U/L CK-MB (CK-2) 30.6 H (0.0-3.6) ng/mL CK-MB (CK-2) % 4.9 H (2.5-3.0) % Troponin I 18.30 H* ng/mL Total Protein (5.8-8.3) g/dL Albumin (3.0-4.8) g/dL Globulin gm/dL Albumin/Globulin Ratio (1.1-1.8) 11/28/18 11/28/18 11/28/18 Range/Units 17:15 11:09 08:23 WBC (4.5-11.0) 10^3/uL RBC (3.5-6.1) 10^6/uL Hgb (14.0-18.0) g/dL Hct (42.0-52.0) % MCV (80.0-105.0) fl MCH (25.0-35.0) pg MCHC (31.0-37.0) g/dl RDW (11.5-14.5) % Plt Count (120.0-450.0) 10^3/uL MPV (7.0-11.0) fl Neut % (Auto) (50.0-68.0) % Lymph % (Auto) (22.0-35.0) % Addison % (Auto) (1.0-6.0) % Eos % (Auto) (1.5-5.0) % Baso % (Auto) (0.0-3.0) % Lymph # (Auto) (1.2-3.4) Addison # (Auto) (0.1-0.6) Eos # (Auto) (0.0-0.7) Baso # (Auto) (0.0-2.0) K/mm3 Absolute Neuts (auto) (1.4-6.5) PT (9.4-12.5) SECONDS INR Sodium 139 (132-148) mmol/L Potassium 4.3 (3.6-5.0) mmol/L Chloride 102 (98-107) mmol/L Carbon Dioxide 24 (21-33) mmol/L Anion Gap 17 (10-20) BUN 14 (7-21) mg/dL Creatinine 0.9 (0.8-1.5) mg/dl Est GFR ( Amer) > 60 Est GFR (Non-Af Amer) > 60 POC Glucose (mg/dL) 230 H (65-110) mg/dL Random Glucose 227 H (70-110) mg/dL Calcium 9.2 (8.4-10.5) mg/dL Total Bilirubin 0.6 (0.2-1.3) mg/dL AST 38 (17-59) U/L ALT 33 (7-56) U/L Alkaline Phosphatase 69 (38-126) U/L Lactate Dehydrogenase 754 H 564 (333-699) U/L Total Creatine Kinase 694 H 117 (35-230) U/L CK-MB (CK-2) 49.5 H (0.0-3.6) ng/mL CK-MB (CK-2) % 7.1 H (2.5-3.0) % Troponin I 17.10 H* D 0.01 ng/mL Total Protein 8.0 (5.8-8.3) g/dL Albumin 4.7 (3.0-4.8) g/dL Globulin 3.4 gm/dL Albumin/Globulin Ratio 1.4 (1.1-1.8) 11/28/18 11/28/18 11/28/18 Range/Units 08:23 08:23 08:15 WBC 16.2 H (4.5-11.0) 10^3/uL RBC 5.16 (3.5-6.1) 10^6/uL Hgb 14.8 (14.0-18.0) g/dL Hct 45.4 (42.0-52.0) % MCV 88.0 (80.0-105.0) fl MCH 28.7 (25.0-35.0) pg MCHC 32.6 (31.0-37.0) g/dl RDW 14.3 (11.5-14.5) % Plt Count 290 (120.0-450.0) 10^3/uL MPV 11.6 H (7.0-11.0) fl Neut % (Auto) 73.2 H (50.0-68.0) % Lymph % (Auto) 19.2 L (22.0-35.0) % Addison % (Auto) 5.2 (1.0-6.0) % Eos % (Auto) 2.0 (1.5-5.0) % Baso % (Auto) 0.4 (0.0-3.0) % Lymph # (Auto) 3.1 (1.2-3.4) Addison # (Auto) 0.9 H (0.1-0.6) Eos # (Auto) 0.3 (0.0-0.7) Baso # (Auto) 0.06 (0.0-2.0) K/mm3 Absolute Neuts (auto) 11.87 H (1.4-6.5) PT 12.1 (9.4-12.5) SECONDS INR 1.07 Sodium (132-148) mmol/L Potassium (3.6-5.0) mmol/L Chloride (98-107) mmol/L Carbon Dioxide (21-33) mmol/L Anion Gap (10-20) BUN (7-21) mg/dL Creatinine (0.8-1.5) mg/dl Est GFR ( Amer) Est GFR (Non-Af Amer) POC Glucose (mg/dL) 251 H (65-110) mg/dL Random Glucose (70-110) mg/dL Calcium (8.4-10.5) mg/dL Total Bilirubin (0.2-1.3) mg/dL AST (17-59) U/L ALT (7-56) U/L Alkaline Phosphatase (38-126) U/L Lactate Dehydrogenase (333-699) U/L Total Creatine Kinase (35-230) U/L CK-MB (CK-2) (0.0-3.6) ng/mL CK-MB (CK-2) % (2.5-3.0) % Troponin I ng/mL Total Protein (5.8-8.3) g/dL Albumin (3.0-4.8) g/dL Globulin gm/dL Albumin/Globulin Ratio (1.1-1.8) Laboratory Results - last 24 hr 11/28/18 11/28/18 11/28/18 08:15 08:23 08:23 WBC 16.2 H RBC 5.16 Hgb 14.8 Hct 45.4 MCV 88.0 MCH 28.7 MCHC 32.6 RDW 14.3 Plt Count 290 MPV 11.6 H Neut % (Auto) 73.2 H Lymph % (Auto) 19.2 L Addison % (Auto) 5.2 Eos % (Auto) 2.0 Baso % (Auto) 0.4 Lymph # (Auto) 3.1 Addison # (Auto) 0.9 H Eos # (Auto) 0.3 Baso # (Auto) 0.06 Absolute Neuts (auto) 11.87 H PT 12.1 INR 1.07 Sodium Potassium Chloride Carbon Dioxide Anion Gap BUN Creatinine Est GFR ( Amer) Est GFR (Non-Af Amer) POC Glucose (mg/dL) 251 H Random Glucose Calcium Total Bilirubin AST ALT Alkaline Phosphatase Lactate Dehydrogenase Total Creatine Kinase CK-MB (CK-2) CK-MB (CK-2) % Troponin I Total Protein Albumin Globulin Albumin/Globulin Ratio 11/28/18 11/28/18 11/28/18 08:23 11:09 17:15 WBC RBC Hgb Hct MCV MCH MCHC RDW Plt Count MPV Neut % (Auto) Lymph % (Auto) Addison % (Auto) Eos % (Auto) Baso % (Auto) Lymph # (Auto) Addison # (Auto) Eos # (Auto) Baso # (Auto) Absolute Neuts (auto) PT INR Sodium 139 Potassium 4.3 Chloride 102 Carbon Dioxide 24 Anion Gap 17 BUN 14 Creatinine 0.9 Est GFR ( Amer) > 60 Est GFR (Non-Af Amer) > 60 POC Glucose (mg/dL) 230 H Random Glucose 227 H Calcium 9.2 Total Bilirubin 0.6 AST 38 ALT 33 Alkaline Phosphatase 69 Lactate Dehydrogenase 564 754 H Total Creatine Kinase 117 694 H CK-MB (CK-2) 49.5 H CK-MB (CK-2) % 7.1 H Troponin I 0.01 17.10 H* D Total Protein 8.0 Albumin 4.7 Globulin 3.4 Albumin/Globulin Ratio 1.4 11/29/18 11/29/18 11/29/18 01:02 05:30 05:30 WBC 9.5 D RBC 4.56 Hgb 12.8 L D Hct 39.3 L MCV 86.2 MCH 28.1 MCHC 32.6 RDW 14.4 Plt Count 223 MPV 11.5 H Neut % (Auto) 74.0 H Lymph % (Auto) 15.2 L Addison % (Auto) 8.9 H Eos % (Auto) 1.7 Baso % (Auto) 0.2 Lymph # (Auto) 1.5 Addison # (Auto) 0.9 H Eos # (Auto) 0.2 Baso # (Auto) 0.02 Absolute Neuts (auto) 7.03 H PT INR Sodium 136 Potassium 3.8 Chloride 99 Carbon Dioxide 30 Anion Gap 11 BUN 16 Creatinine 1.0 Est GFR ( Amer) > 60 Est GFR (Non-Af Amer) > 60 POC Glucose (mg/dL) Random Glucose 159 H Calcium 9.3 Total Bilirubin AST ALT Alkaline Phosphatase Lactate Dehydrogenase 873 H Total Creatine Kinase 619 H CK-MB (CK-2) 30.6 H CK-MB (CK-2) % 4.9 H Troponin I 18.30 H* Total Protein Albumin Globulin Albumin/Globulin Ratio Radiology Impressions: Radiology Impressions Chest X-Ray 11/28/18 09:15 IMPRESSION: Pulmonary edema EKG/Cardiology Studies: Cardiology / EKG Studies 11/28/18 08:14 EKG [ELECTROCARDIOGRAM] Stat Comment: Reason For Exam: CODE HEART 11/28/18 08:54 ELECTROCARDIOGRAM Urgent Comment: 12 lead EKG upon arrival in unit Reason For Exam: post ptca 11/29/18 09:00 ELECTROCARDIOGRAM DAILY Comment: Reason For Exam: chest pain Fingerstick Blood Sugar Results: 176 Review of Systems - Review of Systems Review of Systems: per [facility] Critical Care Progress Note - Nutrition Nutrition: Nutrition Category Date Time Status Heart Healthy Diet [DIET] Diets 11/28/18 Lunch Active Assessment/Plan - Assessment and Plan (Free Text) Assessment: 73 y/o M PMH IDDM, HTN, HLD, Prostate ca s/p radiation, asthma admitted to CCU s/p cardiac catheterization with KELLY placement in mid LAD. Plan: Neuro: AxO x 3 GCS Reorient regularly Cardiovascular: CAD s/p cardiac cath w KELLY in mid LAD continue aspirin continue carvedilol continue atorvastatin continue brilinta HTN continue losartan Pulmonary: No wheezing/crackles noted Repeat CXR shows improvement in pulmonary edema continue lasix po natalia monitor respiratory status O2 via NC Endocrine: IDDM Insulin sliding scale DVT/GI PPx: SCD/Protonix Dispo: Pt's respiratory status has improved. He is feeling much better. Tolerating diet. Vital signs stable. CXR shows improvement in pulmonary edema. Pt no longer requires ICU care. He will be transferred to telemetry. Bogger Operator & PMD made aware Case seen, examined and discussed with attending physician, Dr. Abdullahi Avila PGY1 <John Yoo - Last Filed: 11/29/18 11:33> CCU Objective - Vital Signs / Intake & Output Vital Signs (Last 4 hours): Vital Signs Pulse Resp BP Pulse Ox 11/29/18 11:07 78 121/60 11/29/18 09:44 89 139/62 11/29/18 09:43 89 139/62 11/29/18 08:30 83 13 95 11/29/18 08:15 75 16 98 11/29/18 08:00 140/64 11/29/18 07:59 74 97 11/29/18 07:45 81 16 98 11/29/18 07:30 75 20 98 Intake and Output (Last 8hrs): Intake & Output 11/28/18 11/29/18 11/29/18 22:59 06:59 14:59 Intake Total 640 320 Output Total 1575 1200 Balance -935 -880 Weight 227 lb Intake: IV 160 160 Left Hand 160 integrillin 160 Oral 480 160 Output: Urine 1575 1200 Urine, Voided 1575 1200 Other: # Voids Urine, Voided 3 # Bowel Movements 1 0 - Medications Active Medications: Active Medications Generic Name Dose Route Start Last Admin Trade Name Freq PRN Reason Stop Dose Admin Acetaminophen 650 mg 11/28/18 08:54 11/28/18 20:45 Tylenol 325mg Tab PO 650 mg Q4H PRN Administration Pain, Mild (1-3) Aspirin 81 mg 11/29/18 10:00 11/29/18 09:43 Ecotrin PO 81 mg DAILY NATALIA Administration Atorvastatin Calcium 80 mg 11/28/18 17:00 11/28/18 17:45 Lipitor PO 80 mg DIN NATALIA Administration Carvedilol 25 mg 11/29/18 10:29 11/29/18 11:07 Coreg PO 12.5 mg Q12H NATALIA Administration Furosemide 40 mg 11/29/18 10:00 11/29/18 09:44 Lasix PO 40 mg BID NATALIA Administration Insulin Human Regular 0 units 11/28/18 11:30 11/29/18 07:30 Humulin R Med SC Not Given [facility] Protocol Sacubitril/Valsartan 1 each 11/29/18 18:00 Entresto 24 Mg-26 Mg Tablet PO BID NATALIA Spironolactone 25 mg 11/29/18 18:00 Aldactone PO BID NATALIA Ticagrelor 90 mg 11/28/18 18:00 11/29/18 09:43 Brilinta PO 90 mg BID NATALIA Administration - Patient Studies Lab Studies: Microbiology Studies 11/28/18 09:26 MRSA Culture (Admit) - Final Naris MRSA NOT DETECTED Lab Studies 11/29/18 11/29/18 11/29/18 Range/Units 10:40 07:14 05:30 WBC 9.5 D (4.5-11.0) 10^3/uL RBC 4.56 (3.5-6.1) 10^6/uL Hgb 12.8 L D (14.0-18.0) g/dL Hct 39.3 L (42.0-52.0) % MCV 86.2 (80.0-105.0) fl MCH 28.1 (25.0-35.0) pg MCHC 32.6 (31.0-37.0) g/dl RDW 14.4 (11.5-14.5) % Plt Count 223 (120.0-450.0) 10^3/uL MPV 11.5 H (7.0-11.0) fl Neut % (Auto) 74.0 H (50.0-68.0) % Lymph % (Auto) 15.2 L (22.0-35.0) % Addison % (Auto) 8.9 H (1.0-6.0) % Eos % (Auto) 1.7 (1.5-5.0) % Baso % (Auto) 0.2 (0.0-3.0) % Lymph # (Auto) 1.5 (1.2-3.4) Addison # (Auto) 0.9 H (0.1-0.6) Eos # (Auto) 0.2 (0.0-0.7) Baso # (Auto) 0.02 (0.0-2.0) K/mm3 Absolute Neuts (auto) 7.03 H (1.4-6.5) Sodium (132-148) mmol/L Potassium (3.6-5.0) mmol/L Chloride (98-107) mmol/L Carbon Dioxide (21-33) mmol/L Anion Gap (10-20) BUN (7-21) mg/dL Creatinine (0.8-1.5) mg/dl Est GFR ( Amer) Est GFR (Non-Af Amer) POC Glucose (mg/dL) 138 H (65-110) mg/dL Random Glucose (70-110) mg/dL Calcium (8.4-10.5) mg/dL Lactate Dehydrogenase (333-699) U/L Total Creatine Kinase (35-230) U/L CK-MB (CK-2) (0.0-3.6) ng/mL CK-MB (CK-2) % (2.5-3.0) % Troponin I ng/mL Urine Color Yellow (YELLOW) Urine Appearance Clear (CLEAR) Urine pH 5.5 (4.7-8.0) Ur Specific Mccloud 1.010 (1.005-1.035) Urine Protein Negative (<30 mg/dL) mg/dL Urine Glucose (UA) Negative (NEGATIVE) mg/dL Urine Ketones Negative (NEGATIVE) mg/dL Urine Blood Negative (NEGATIVE) Urine Nitrate Negative (NEGATIVE) Urine Bilirubin Negative (NEGATIVE) Urine Urobilinogen 0.2 (<1 E.U./dL) E.U./dL Ur Leukocyte Esterase Negative (NEGATIVE) Clemencia/uL 11/29/18 11/29/18 11/28/18 Range/Units 05:30 01:02 21:14 WBC (4.5-11.0) 10^3/uL RBC (3.5-6.1) 10^6/uL Hgb (14.0-18.0) g/dL Hct (42.0-52.0) % MCV (80.0-105.0) fl MCH (25.0-35.0) pg MCHC (31.0-37.0) g/dl RDW (11.5-14.5) % Plt Count (120.0-450.0) 10^3/uL MPV (7.0-11.0) fl Neut % (Auto) (50.0-68.0) % Lymph % (Auto) (22.0-35.0) % Addison % (Auto) (1.0-6.0) % Eos % (Auto) (1.5-5.0) % Baso % (Auto) (0.0-3.0) % Lymph # (Auto) (1.2-3.4) Addison # (Auto) (0.1-0.6) Eos # (Auto) (0.0-0.7) Baso # (Auto) (0.0-2.0) K/mm3 Absolute Neuts (auto) (1.4-6.5) Sodium 136 (132-148) mmol/L Potassium 3.8 (3.6-5.0) mmol/L Chloride 99 (98-107) mmol/L Carbon Dioxide 30 (21-33) mmol/L Anion Gap 11 (10-20) BUN 16 (7-21) mg/dL Creatinine 1.0 (0.8-1.5) mg/dl Est GFR ( Amer) > 60 Est GFR (Non-Af Amer) > 60 POC Glucose (mg/dL) 176 H (65-110) mg/dL Random Glucose 159 H (70-110) mg/dL Calcium 9.3 (8.4-10.5) mg/dL Lactate Dehydrogenase 873 H (333-699) U/L Total Creatine Kinase 619 H (35-230) U/L CK-MB (CK-2) 30.6 H (0.0-3.6) ng/mL CK-MB (CK-2) % 4.9 H (2.5-3.0) % Troponin I 12.90 H* D 18.30 H* ng/mL Urine Color (YELLOW) Urine Appearance (CLEAR) Urine pH (4.7-8.0) Ur Specific Mccloud (1.005-1.035) Urine Protein (<30 mg/dL) mg/dL Urine Glucose (UA) (NEGATIVE) mg/dL Urine Ketones (NEGATIVE) mg/dL Urine Blood (NEGATIVE) Urine Nitrate (NEGATIVE) Urine Bilirubin (NEGATIVE) Urine Urobilinogen (<1 E.U./dL) E.U./dL Ur Leukocyte Esterase (NEGATIVE) Clmeencia/uL 11/28/18 11/28/18 Range/Units 17:15 16:22 WBC (4.5-11.0) 10^3/uL RBC (3.5-6.1) 10^6/uL Hgb (14.0-18.0) g/dL Hct (42.0-52.0) % MCV (80.0-105.0) fl MCH (25.0-35.0) pg MCHC (31.0-37.0) g/dl RDW (11.5-14.5) % Plt Count (120.0-450.0) 10^3/uL MPV (7.0-11.0) fl Neut % (Auto) (50.0-68.0) % Lymph % (Auto) (22.0-35.0) % Addison % (Auto) (1.0-6.0) % Eos % (Auto) (1.5-5.0) % Baso % (Auto) (0.0-3.0) % Lymph # (Auto) (1.2-3.4) Addison # (Auto) (0.1-0.6) Eos # (Auto) (0.0-0.7) Baso # (Auto) (0.0-2.0) K/mm3 Absolute Neuts (auto) (1.4-6.5) Sodium (132-148) mmol/L Potassium (3.6-5.0) mmol/L Chloride (98-107) mmol/L Carbon Dioxide (21-33) mmol/L Anion Gap (10-20) BUN (7-21) mg/dL Creatinine (0.8-1.5) mg/dl Est GFR ( Amer) Est GFR (Non-Af Amer) POC Glucose (mg/dL) 89 (65-110) mg/dL Random Glucose (70-110) mg/dL Calcium (8.4-10.5) mg/dL Lactate Dehydrogenase 754 H (333-699) U/L Total Creatine Kinase 694 H (35-230) U/L CK-MB (CK-2) 49.5 H (0.0-3.6) ng/mL CK-MB (CK-2) % 7.1 H (2.5-3.0) % Troponin I 17.10 H* D ng/mL Urine Color (YELLOW) Urine Appearance (CLEAR) Urine pH (4.7-8.0) Ur Specific Mccloud (1.005-1.035) Urine Protein (<30 mg/dL) mg/dL Urine Glucose (UA) (NEGATIVE) mg/dL Urine Ketones (NEGATIVE) mg/dL Urine Blood (NEGATIVE) Urine Nitrate (NEGATIVE) Urine Bilirubin (NEGATIVE) Urine Urobilinogen (<1 E.U./dL) E.U./dL Ur Leukocyte Esterase (NEGATIVE) Clemencia/uL Laboratory Results - last 24 hr 11/28/18 11/28/18 11/28/18 16:22 17:15 21:14 WBC RBC Hgb Hct MCV MCH MCHC RDW Plt Count MPV Neut % (Auto) Lymph % (Auto) Addison % (Auto) Eos % (Auto) Baso % (Auto) Lymph # (Auto) Addison # (Auto) Eos # (Auto) Baso # (Auto) Absolute Neuts (auto) Sodium Potassium Chloride Carbon Dioxide Anion Gap BUN Creatinine Est GFR ( Amer) Est GFR (Non-Af Amer) POC Glucose (mg/dL) 89 176 H Random Glucose Calcium Lactate Dehydrogenase 754 H Total Creatine Kinase 694 H CK-MB (CK-2) 49.5 H CK-MB (CK-2) % 7.1 H Troponin I 17.10 H* D Urine Color Urine Appearance Urine pH Ur Specific Mccloud Urine Protein Urine Glucose (UA) Urine Ketones Urine Blood Urine Nitrate Urine Bilirubin Urine Urobilinogen Ur Leukocyte Esterase 11/29/18 11/29/18 11/29/18 01:02 05:30 05:30 WBC 9.5 D RBC 4.56 Hgb 12.8 L D Hct 39.3 L MCV 86.2 MCH 28.1 MCHC 32.6 RDW 14.4 Plt Count 223 MPV 11.5 H Neut % (Auto) 74.0 H Lymph % (Auto) 15.2 L Addison % (Auto) 8.9 H Eos % (Auto) 1.7 Baso % (Auto) 0.2 Lymph # (Auto) 1.5 Addison # (Auto) 0.9 H Eos # (Auto) 0.2 Baso # (Auto) 0.02 Absolute Neuts (auto) 7.03 H Sodium 136 Potassium 3.8 Chloride 99 Carbon Dioxide 30 Anion Gap 11 BUN 16 Creatinine 1.0 Est GFR ( Amer) > 60 Est GFR (Non-Af Amer) > 60 POC Glucose (mg/dL) Random Glucose 159 H Calcium 9.3 Lactate Dehydrogenase 873 H Total Creatine Kinase 619 H CK-MB (CK-2) 30.6 H CK-MB (CK-2) % 4.9 H Troponin I 18.30 H* 12.90 H* D Urine Color Urine Appearance Urine pH Ur Specific Mccloud Urine Protein Urine Glucose (UA) Urine Ketones Urine Blood Urine Nitrate Urine Bilirubin Urine Urobilinogen Ur Leukocyte Esterase 11/29/18 11/29/18 07:14 10:40 WBC RBC Hgb Hct MCV MCH MCHC RDW Plt Count MPV Neut % (Auto) Lymph % (Auto) Addison % (Auto) Eos % (Auto) Baso % (Auto) Lymph # (Auto) Addison # (Auto) Eos # (Auto) Baso # (Auto) Absolute Neuts (auto) Sodium Potassium Chloride Carbon Dioxide Anion Gap BUN Creatinine Est GFR ( Amer) Est GFR (Non-Af Amer) POC Glucose (mg/dL) 138 H Random Glucose Calcium Lactate Dehydrogenase Total Creatine Kinase CK-MB (CK-2) CK-MB (CK-2) % Troponin I Urine Color Yellow Urine Appearance Clear Urine pH 5.5 Ur Specific Mccloud 1.010 Urine Protein Negative Urine Glucose (UA) Negative Urine Ketones Negative Urine Blood Negative Urine Nitrate Negative Urine Bilirubin Negative Urine Urobilinogen 0.2 Ur Leukocyte Esterase Negative Radiology Impressions: Radiology Impressions Chest X-Ray 11/28/18 09:15 IMPRESSION: Pulmonary edema EKG/Cardiology Studies: Cardiology / EKG Studies 11/29/18 09:00 ELECTROCARDIOGRAM DAILY Comment: Reason For Exam: chest pain Critical Care Progress Note - Nutrition Nutrition: Nutrition Category Date Time Status Heart Healthy Diet [DIET] Diets 11/28/18 Lunch Active Assessment/Plan - Assessment and Plan (Free Text) Plan: Patient seen and examined on rounds, with resident, agree with note with following additions/exceptions: Patient is 73yo male with PMHx IDDM, HTN, HLD, Prostate ca s/p radiation, asthma [place] [facility] [place] [facility] [place] for SOB without associated chest pain. Found to have STEMI in V2-V3 with t-wave inversions on lateral leads on EKG, taken to label rewinder and cardiac cath with placement of KELLY into LAD Patient was also placed on BIPAP 09/19/50%, CXR with pulm edema yesterday Labs, imaging, chart reviewed CXR with IMPROVEMENT today ECHO pending Currently afebrile, BP stable, comfortable in NAD, on 2LNC, sat 98% CHF, acute exacerbation Pulm Edema STEMI CP SOB DM Recommend: - cont with supp O2, goal sat 90% - duonebs PRN - NO ID issues - BP control - ASA, Plavix, Statin, BB - Lasix 40mg PO daily - FS control - check lipid panel, TSH, HgbA1C - GI ppx - DVT ppx - stable, transfer to tele
--- NOTE | 2018-11-29 08:20 | CARD ---
APPROVED REPORT Date of service: 11/28/2018 EKG Measurement Heart [id number] <Conclusion> Sinus tachycardia with occasional premature ventricular complexes and fusion complexes ST elevation, consider early repolarization, pericarditis, or injury T wave abnormality, consider lateral ischemia Abnormal ECG
--- NOTE | 2018-11-29 08:41 | CARD ---
APPROVED REPORT Date of service: 11/28/2018 EXAM: Two-dimensional and M-mode echocardiogram with Doppler and color Doppler. INDICATION IN 2D DIMENSIONS Left Atrium (2D)4.4 (1.6-4.0cm)IVSd1.2 (0.7-1.1cm) LVDd6.9 (3.9-5.9cm)PWd1.2 (0.7-1.1cm) LVDs6.0 (2.5-4.0cm)FS (%) 12.3 % LVEF (%)25.6 (>50%) M-Mode DIMENSIONS Aortic Root3.30 (2.2-3.7cm)Aortic Cusp Exc.1.50 (1.5-2.0cm) Aortic Valve AoV Peak Vgjqbtfd285.0cm/Ferny Peak GR.6mmHg Mitral Valve MV E Bgnbrurd75.1cm/sMV A Wgxcobwe07.6cm/sE/A ratio1.1 TDI E/Lateral E'0.0E/Medial E'0.0 LEFT VENTRICLE The Left Ventricle is severely dilated. There is mild concentric left ventricular hypertrophy. The systolic function is moderately to severely impaired. There is apical akinesis. There is global hypokinesis of the left ventricle. There is severe hypokinesis of the anteroseptal wall. RIGHT VENTRICLE The right ventricle is normal size. The right ventricular systolic function is normal. ATRIA The left atrium is mildly dilated. The right atrium size is normal. The interatrial septum is intact with no evidence for an atrial septal defect. AORTIC VALVE The aortic valve is not well visualized. There is mild aortic regurgitation. There is no aortic valvular stenosis. MITRAL VALVE The mitral valve is normal in structure. Mitral regurgitation is mild. TRICUSPID VALVE The tricuspid valve is normal in structure. There is no tricuspid valve regurgitation noted. PULMONIC VALVE The pulmonic valve is not well visualized. GREAT VESSELS The aortic root is normal in size. The IVC is normal in size and collapses >50% with inspiration. PERICARDIAL EFFUSION There is no pleural effusion. There is no pericardial effusion. <Conclusion> Technically limited study. Dilated LV and LA. Severe LV systolic dsyfunction with apical akinesis, severe anteroseptal hypokinesis as well as global hypokinesis. Mild MR. Mild AI.
[2018-11-29] MEDS ORDERED: Potassium Chloride 20 mEq ER Tab PO STA (09:24)
[2018-11-29 10:54] LABS: PH,URINE 5.5 (4.7-8.0); URINE BILIRUBIN NEGATIVE (NEGATIVE); URINE BLOOD NEGATIVE (NEGATIVE); URINE GLUCOSE (UA) NEGATIVE (NEGATIVE); URINE LEUKOCYTE ESTERASE NEGATIVE Leu/uL (NEGATIVE); URINE PROTEIN NEGATIVE mg/dL (<30 mg/dL); URINE UROBILINOGEN 0.2 E.U./dL (<1 E.U./dL)
[2018-11-29 11:02] LABS: URINE APPEARANCE CLEAR (CLEAR); URINE COLOR YELLOW (YELLOW)
--- NOTE | 2018-11-29 12:21 | RAD ---
Date of service: 11/29/2018 HISTORY: pulmonary edema COMPARISON: 11/28/2018 FINDINGS: LUNGS: Resolved pulmonary edema PLEURA: No significant pleural effusion identified, no pneumothorax apparent. CARDIOVASCULAR: No aortic atherosclerotic calcification present. Normal cardiac size. Resolution of pulmonary vascular congestion OSSEOUS STRUCTURES: No significant abnormalities. VISUALIZED UPPER ABDOMEN: Normal. OTHER FINDINGS: None. IMPRESSION: Resolved pulmonary edema
--- NOTE | 2018-11-29 12:52 | PN ---
DATE: 11/29/2018 SUBJECTIVE: The patient is seen lying in bed in the CCU. He states he feels significantly better. He is seen in the presence of his daughter, who provides translation. He denies any chest pain and his dyspnea is improved. His peak troponin was 18.3, repeat is 12.9. MEDICATIONS: His current medications include aspirin, Brilinta 90 mg b.i.d., carvedilol 12.5 mg b.i.d., Cozaar 25 mg daily, Lasix 40 mg b.i.d., Lipitor 80 mg daily, and Protonix. OBJECTIVE GENERAL: He is a overweight middle-aged man. VITAL SIGNS: His blood pressure is 140/60 with a pulse of 90 and sinus, respirations are 16. He is afebrile. HEENT: No JVD. CHEST: Few scattered rhonchi heard. No rales noted. HEART: PMI displaced laterally with soft tones noted. ABDOMEN: Soft, nontender with normoactive bowel sounds. EXTREMITIES: No edema. DIAGNOSTIC DATA: Peak troponin is 18.3, repeat is 12.9, potassium 3.8, BUN and creatinine 16 and 1.0, glucose is 159. White count 9.5, hemoglobin and hematocrit 12.8 and 39.3 with a platelet count of 223,000. Chest x-ray reveals enlarged cardiac silhouette with markedly improved pulmonary congestion pattern. Echocardiogram is reviewed and this showed evidence of dilated left ventricle and left atrium with severe LV systolic dysfunction as well as apical akinesis, severe anteroseptal hypokinesis, and global hypokinesis. Mild mitral and aortic insufficiency were noted. IMPRESSION 1. Status post anterior wall myocardial infarction treated with emergent percutaneous coronary intervention of left anterior descending artery. 2. Congestive heart failure, acute systolic secondary to infarct. 3. Severe left ventricular systolic dysfunction, appears to have a component of underlying cardiomyopathy with superimposed infarct. 4. History of hypertension and diabetes. RECOMMENDATIONS: Aspirin and Brilinta will continue unchanged. High-dose statin therapy will be continued. Beta-nickie dose will be increased as tolerated. Losartan will be held and Entresto initiated at this time. Spirolactone will be added to his regimen as well. Transfer to telemetry is reasonable. Post myocardial infarction instructions were discussed with him and his daughter. Hopeful discharge within the next 24-48 hours will be possible. Aggressive risk factor control will be advised. We will follow along as needed. Russel Ramírez MD
--- NOTE | 2018-11-29 13:05 | CP.PCM.PN ---
Subjective - Date & Time of Evaluation Date of Evaluation: 11/29/18 Time of Evaluation: 10:00 - Subjective Subjective: Comfortable in bed, no SOB at rest, no chest pain, no cough, no nausea. Objective - Vital Signs/Intake and Output Vital Signs (last 24 hours): Temp Pulse Resp BP Pulse Ox 97.1 F L 81 20 113/54 L 99 11/28/18 08:15 11/28/18 11:00 11/28/18 11:00 11/28/18 11:00 11/28/18 11:00 - Medications Medications: Current Medications Acetaminophen (Tylenol 325mg Tab) 650 mg PO Q4H PRN PRN Reason: Pain, Mild (1-3) Aspirin (Ecotrin) 81 mg PO DAILY [facility] Atorvastatin Calcium (Lipitor) 80 mg PO DIN [facility] Carvedilol (Coreg) 12.5 mg PO Q12H [facility] Last Admin: 11/28/18 09:43 Dose: 12.5 mg Furosemide (Lasix) 40 mg IV BID [facility] Last Admin: 11/28/18 09:36 Dose: 40 mg Eptifibatide (Integrilin) 75 mg in 100 mls @ 19.45 mls/hr IV .Q5H9M [facility]; Protocol Stop: 11/29/18 03:01 Last Admin: 11/28/18 14:07 Dose: 19.45 mls/hr Insulin Human Regular (Humulin R Med) 0 units SC [facility]; Protocol Last Admin: 11/28/18 12:09 Dose: 3 units Insulin Human Regular (Humulin R Med) 0 units SC [facility]; Protocol Losartan Potassium (Cozaar) 25 mg PO DAILY [facility] Last Admin: 11/28/18 09:43 Dose: 25 mg Pantoprazole Sodium (Protonix Inj) 40 mg IVP DAILY [facility] Ticagrelor (Brilinta) 90 mg PO BID [facility] - Labs Labs: 11/28/18 08:23 11/28/18 08:23 PT 12.1 SECONDS (9.4-12.5) 11/28/18 08:23 INR 1.07 11/28/18 08:23 - Constitutional Appears: No Acute Distress - Head Exam Head Exam: NORMAL INSPECTION - Respiratory Exam Respiratory Exam: Decreased Breath Sounds - Cardiovascular Exam Cardiovascular Exam: +S1, +S2 - GI/Abdominal Exam GI & Abdominal Exam: Soft. absent: Tenderness Assessment and Plan - Assessment and Plan (Free Text) Plan: Assessment Systemic Inflammatory response syndrome due to STEMI S/P PCI with stenting of LAD, so far no evidence of infection identified, patient is hemodynamically stable currently, leukocytosis has resolved DM HTN morbid obesity with BMI 41 asthma prostate cancer S/P radiation Plan Will continue to monitor off antibiotics; follow up blood cx, urinalysis is not suggestive of infection CXR reviewed, which is more consistent with pulmonary edema - repeat CXR shows resolved pulmonary edema patient has currently no symptoms suggestive of infection follow up further recommendations of Cardiology WBC count has now normalized
--- NOTE | 2018-11-29 14:03 | PN ---
DATE: 11/29/2018 SUBJECTIVE: He is resting in the intensive care unit. He had a cold heart, he was stented in the LAD by Cardiology. He is hopefully going to be taken out of the intensive care unit today and moved down to telemetry floor. He had an OH, CAD, leukocytosis, pulmonary edema, SIRS. He is on Brilinta, Coreg, Cozaar, Ecotrin, insulin, Lasix, Lipitor, Protonix and Tylenol. PHYSICAL EXAMINATION: VITAL SIGNS: He has a 98.2 temp, 78 pulse, 119/72 blood pressure, 20 respiratory rate and 97% O2 sat on room air. HEENT: Head is atraumatic, normocephalic. He has yesterday. HEART: Regular rate. LUNGS: Clear to auscultation. ABDOMEN: Soft, obese, nontender. EXTREMITIES: No edema. ASSESSMENT AND PLAN: He is much more comfortable. No chest pain, no shortness of breath, no abdominal pain. He had blood test done. He has a 9.5 white count. When he came in, it was 16.2 and came down to 9.5 nightly, hemoglobin 12.8, hematocrit 39.3, platelets are 223. INR is 1.07. He has 136 sodium, potassium 3.8, BUN 16, creatinine 1, GFR is greater than 60, sugar is 159, calcium is 9.3, lactate dehydrogenase, it is still high at 873, total creatine kinase is still high at 6.9, catheterization; his troponin is 18.3, still high, being seen by Infectious Disease, Cardiology, there is a chest x-ray pending. Clinically, he is doing better from the stents, we transferred to telemetry floor. I will check his labs tomorrow, physical therapy, out of bed to chair. Hope he will continue to improve. Phil Guallpa DO MTDD
--- NOTE | 2018-11-29 15:17 | CARD ---
APPROVED REPORT Date of service: 11/29/2018 EKG Measurement Heart [id number] <Conclusion> Sinus rhythm with occasional premature ventricular complexes Minimal voltage criteria for LVH, may be normal variant ST elevation, consider early repolarization, pericarditis, or injury Marked T wave abnormality, consider anterolateral ischemia Prolonged QT Abnormal ECG
[2018-11-29] MEDS: SACUBITRIL 24mg/VALSARTAN 26mg tab PO SCH (18:14)
[2018-11-30 06:52] LABS: HEMOGLOBIN 12.5 g/dL (14.0-18.0); MEAN CORPUSCULAR HEMOGLOBIN 28.3 pg (25.0-35.0); MEAN CORPUSCULAR HGB CONC 32.9 g/dl (31.0-37.0); MEAN PLATELET VOLUME 11.4 fl (7.0-11.0); RBC 4.42 10^6/uL (3.5-6.1); RED CELL DISTRIBUTION WIDTH 14.2 % (11.5-14.5); WHITE BLOOD COUNT 8.8 10^3/uL (4.5-11.0)
[2018-11-30 07:33] LABS: ALB/GLOB RATIO 1.4 (1.1-1.8); ALT/SGPT 23 U/L (7-56); AST/SGOT 47 U/L (17-59); BLOOD UREA NITROGEN 21 mg/dL (7-21); GFR NON-AFRICAN AMERICAN > 60; TROPONIN I 7.06 ng/mL
[2018-11-30] MEDS: Insulin Reg-MEDIUM-Coverage SC SCH ×4 (08:24→21:29)
[2018-11-30] MEDS: SACUBITRIL 24mg/VALSARTAN 26mg tab PO SCH ×2 (10:04→17:09)
--- NOTE | 2018-11-30 12:15 | PN ---
DATE: 11/30/2018 SUBJECTIVE: The patient is seen lying in bed in the CCU. He is comfortable at the present time. He denies any chest pain or dyspnea. He is tolerating his current medications. His troponin this morning has fallen to 7.06. CURRENT MEDICATIONS: Include Aldactone 25 mg twice a day, Brilinta 90 mg twice a day, carvedilol 25 mg every 12 hours, Ecotrin once daily, Entresto 24/26 mg twice a day, Lasix 40 mg twice a day, Lipitor 80 mg daily. PHYSICAL EXAMINATION: GENERAL: He is an overweight middle-aged man. VITAL SIGNS: His blood pressure is 116/70 with pulse of 70, respirations year 16. He is in sinus rhythm. He is afebrile. HEENT: No JVD. CHEST: Clear to auscultation percussion. HEART: PMI in normal position. No pathological gallops noted. ABDOMEN: Soft and nontender with normoactive bowel sounds. EXTREMITIES: No edema. DIAGNOSTIC DATA: Troponin is 7.06, potassium 4.2, BUN and creatinine 21 and 1.0, glucose 223. White count is 8.8, hemoglobin and hematocrit 12.5 and 38.0 with platelet count 204,000. IMPRESSION: 1. Status post acute anterior myocardial infarction treated with emergency percutaneous coronary intervention of his left anterior descending, clinically improved. 2. Congestive heart failure, acute systolic secondary to cardiac ischemia, now resolved. 3. Severe left ventricular systolic dysfunction, appears to have a component of underlying cardiomyopathy, possibly secondary to diabetic hypertensive heart disease. 4. Hypertension. 5. Diabetes. 6. Obesity. RECOMMENDATIONS: From a cardiac standpoint, increased ambulation is advised. Discharge home later today or in the morning would be reasonable assuming he remains stable. His diuretic therapy will be reduced to once daily dosing. The rest of his is medications will continue unchanged. They will be strongly emphasized to his family that he continue aspirin and Brilinta therapy uninterrupted for at least 1 year. The risk of acute stent thrombosis should this not occur will be discussed in detail with them. In addition, a careful analysis and discussion of his home medications and changes which have occurred will need to be had prior to discharge. Standard post myocardial fraction instructions will be provided. Referral to cardiac rehabilitation will be advised as well. Outpatient followup will be arranged. Russel Ramírez MD [facility] # [id number]
--- NOTE | 2018-11-30 15:55 | CP.PCM.PN ---
Subjective - Date & Time of Evaluation Date of Evaluation: 11/30/18 Time of Evaluation: 09:00 - Subjective Subjective: No fevers, no chest pain, no SOB. Objective - Vital Signs/Intake and Output Vital Signs (last 24 hours): Temp Pulse Resp BP Pulse Ox 98.1 F 74 16 120/59 L 96 11/30/18 08:00 11/30/18 11:15 11/30/18 11:15 11/30/18 10:05 11/30/18 11:00 Intake and Output: 11/30/18 11/30/18 06:59 18:59 Intake Total 160 Output Total 600 Balance -440 - Medications Medications: Current Medications Acetaminophen (Tylenol 325mg Tab) 650 mg PO Q4H PRN PRN Reason: Pain, Mild (1-3) Last Admin: 11/29/18 23:16 Dose: 650 mg Aspirin (Ecotrin) 81 mg PO DAILY [facility] Last Admin: 11/30/18 10:04 Dose: 81 mg Atorvastatin Calcium (Lipitor) 80 mg PO DIN [facility] Last Admin: 11/29/18 18:15 Dose: 80 mg Carvedilol (Coreg) 25 mg PO Q12H [facility] Last Admin: 11/30/18 10:05 Dose: 25 mg Furosemide (Lasix) 40 mg PO DAILY [facility] Last Admin: 11/30/18 10:05 Dose: 40 mg Insulin Human Regular (Humulin R Med) 0 units SC [facility]; Protocol Last Admin: 11/30/18 11:48 Dose: 5 units Promethazine HCl/Dextromethorphan (Phenergan Dm Syrup) 5 ml PO TID [facility] Sacubitril/Valsartan (Entresto 24 Mg-26 Mg Tablet) 1 each PO BID [facility] Last Admin: 11/30/18 10:04 Dose: 1 each Spironolactone (Aldactone) 25 mg PO DAILY [facility] Last Admin: 11/30/18 10:05 Dose: 25 mg Ticagrelor (Brilinta) 90 mg PO BID [facility] Last Admin: 11/30/18 10:04 Dose: 90 mg - Labs Labs: 11/30/18 05:40 11/30/18 05:40 PT 12.1 SECONDS (9.4-12.5) 11/28/18 08:23 INR 1.07 11/28/18 08:23 - Constitutional Appears: Chronically Ill - Head Exam Head Exam: NORMAL INSPECTION - Respiratory Exam Respiratory Exam: Decreased Breath Sounds - Cardiovascular Exam Cardiovascular Exam: +S1, +S2 - GI/Abdominal Exam GI & Abdominal Exam: Soft. absent: Tenderness Assessment and Plan - Assessment and Plan (Free Text) Plan: Assessment S/P systemic Inflammatory response syndrome due to STEMI S/P PCI with stenting of LAD, no evidence of infection identified, patient is hemodynamically stable currently, leukocytosis has resolved DM HTN morbid obesity with BMI 41 asthma prostate cancer S/P radiation Plan Will continue to monitor off antibiotics; blood cx are negative, urinalysis is not suggestive of infection CXR reviewed, which is more consistent with pulmonary edema - repeat CXR shows resolved pulmonary edema patient has currently no symptoms suggestive of infection follow up further recommendations of Cardiology WBC count has now normalized
[2018-11-30] MEDS: Promethazine DM 6.25 mg-15 mg/5 ml Syrup PO SCH (17:10)
--- NOTE | 2018-11-30 20:37 | DS ---
DISCHARGE SUMMARY: Cardiology feels he is stable to go and so does Infectious Disease. DISCHARGE MEDICATIONS: He will go home on spironolactone, Brilinta, Coreg, Ecotrin, Entresto, Lasix, and Lipitor. PHYSICAL EXAMINATION: VITAL SIGNS: Temperature 99, pulse 67, blood pressure 115/72, respiratory rate 15, and saturation on room air 95%. HEENT: Head is atraumatic and normocephalic. HEART: Regular rate. LUNGS: Decreased breath sounds but clear. ABDOMEN: Soft and obese. EXTREMITIES: No edema. LABORATORY DATA: White count 8.8, hemoglobin 12.5, hematocrit 38, and platelets of 204. Sodium 138, potassium 4.2, BUN 21, creatinine 1, GFR is greater than 60, sugar is 196, calcium 9, total bili is 0.9. AST is 47, ALT is 23, and alk phos 68. Troponin I was 7. Total protein is 6.8. DISCHARGE DIAGNOSIS AND PLAN: He is status post procedure with locker room attendant for stent placement for acute anterior wall myocardial infarction, he be followed on outpatient with his primary care doctor and his locker room attendant and taking it easy, eating healthy and taking his medications. Phil Guallpa DO
[2018-12-01 06:48] VITALS: O2SAT 98
[2018-12-01] MEDS: Insulin Reg-MEDIUM-Coverage SC SCH ×2 (08:27→12:19)
[2018-12-01] MEDS: SACUBITRIL 24mg/VALSARTAN 26mg tab PO SCH (09:16)
[2018-12-01] MEDS: Promethazine DM 6.25 mg-15 mg/5 ml Syrup PO SCH (09:16)
--- NOTE | 2018-12-01 10:29 | PN ---
DATE: 12/01/2018 SUBJECTIVE: The patient is seen lying in bed the CCU. Telemetry bed has never become available. He is comfortable. He denies any chest pain or dyspnea. CURRENT MEDICATIONS: Include; Aldactone 25 mg daily, aspirin once daily, Brilinta 90 mg b.i.d., carvedilol 25 mg b.i.d., Entresto 24/26 mg b.i.d., Lasix 40 mg daily, Lipitor 80 mg daily and insulin coverage. OBJECTIVE: GENERAL: He is a overweight middle-aged man. VITAL SIGNS: Blood pressure is 126/76 with pulse 74 in sinus and respirations are 40. He is afebrile. HEENT: No JVD. CHEST: Few scattered rhonchi. HEART: PMI displaced laterally with soft tones noted. ABDOMEN: Soft, obese and nontender with normoactive bowel sounds. EXTREMITIES: No edema. DIAGNOSTIC DATA: No blood work pending from this morning. IMPRESSION: 1. Recent anterior wall myocardial infarction complicated by congestive heart failure treated with emergency percutaneous coronary intervention of his left anterior descending, clinically improved. 2. Congestive heart failure, likely combined systolic and diastolic, secondary to cardiac ischemia and underlying left ventricular dysfunction. 3. Severe left ventricular systolic dysfunction, likely chronic exacerbated by recent infarct. 4. Hypertension. 5. Diabetes. 6. Obesity. RECOMMENDATIONS: From a cardiac standpoint, his current medications will be continued at this time. His daughter will be contacted to review his medical regimen and the need for compliance, especially the need for uninterrupted dual antiplatelet therapy for the next year. Arrangements will be made for outpatient followup within the week. Post myocardial fraction instructions will be provided. Referral to cardiac rehabilitation will be advised as well. Russel Ramírez MD
--- NOTE | 2018-12-01 11:57 | CP.PCM.PN ---
Subjective - Date & Time of Evaluation Date of Evaluation: 12/01/18 Time of Evaluation: 09:05 - Subjective Subjective: No chest pain, no SOB, no fevers. Objective - Vital Signs/Intake and Output Vital Signs (last 24 hours): Temp Pulse Resp BP Pulse Ox 98.9 F 79 18 111/79 98 12/01/18 04:00 12/01/18 09:17 12/01/18 04:00 12/01/18 09:17 12/01/18 04:00 Intake and Output: 12/01/18 12/01/18 06:59 18:59 Intake Total 240 Output Total 1000 Balance -760 - Medications Medications: Current Medications Acetaminophen (Tylenol 325mg Tab) 650 mg PO Q4H PRN PRN Reason: Pain, Mild (1-3) Last Admin: 11/29/18 23:16 Dose: 650 mg Aspirin (Ecotrin) 81 mg PO DAILY [facility] Last Admin: 12/01/18 09:17 Dose: 81 mg Atorvastatin Calcium (Lipitor) 80 mg PO DIN [facility] Last Admin: 11/30/18 17:09 Dose: 80 mg Carvedilol (Coreg) 25 mg PO Q12H [facility] Last Admin: 12/01/18 09:17 Dose: 25 mg Furosemide (Lasix) 40 mg PO DAILY [facility] Last Admin: 12/01/18 09:16 Dose: 40 mg Insulin Human Regular (Humulin R Med) 0 units SC [facility]; Protocol Last Admin: 12/01/18 08:27 Dose: 1 units Promethazine HCl/Dextromethorphan (Phenergan Dm Syrup) 5 ml PO TID [facility] Last Admin: 12/01/18 09:16 Dose: 5 ml Sacubitril/Valsartan (Entresto 24 Mg-26 Mg Tablet) 1 each PO BID [facility] Last Admin: 12/01/18 09:16 Dose: 1 each Spironolactone (Aldactone) 25 mg PO DAILY [facility] Last Admin: 12/01/18 09:16 Dose: 25 mg Ticagrelor (Brilinta) 90 mg PO BID [facility] Last Admin: 12/01/18 09:17 Dose: 90 mg - Labs Labs: 11/30/18 05:40 11/30/18 05:40 PT 12.1 SECONDS (9.4-12.5) 11/28/18 08:23 INR 1.07 02/13/19 08:23 - Constitutional Appears: Chronically Ill - Head Exam Head Exam: NORMAL INSPECTION - Respiratory Exam Respiratory Exam: Decreased Breath Sounds - Cardiovascular Exam Cardiovascular Exam: +S1, +S2 - GI/Abdominal Exam GI & Abdominal Exam: Soft. absent: Tenderness Assessment and Plan - Assessment and Plan (Free Text) Plan: Assessment S/P systemic Inflammatory response syndrome due to STEMI S/P PCI with stenting of LAD, no evidence of infection identified, patient is hemodynamically stable currently, leukocytosis has resolved DM HTN morbid obesity with BMI 41 asthma prostate cancer S/P radiation Plan Will continue to monitor off antibiotics; blood cx are negative, urinalysis is not suggestive of infection CXR reviewed, which is more consistent with pulmonary edema - repeat CXR shows resolved pulmonary edema patient has currently no symptoms suggestive of infection follow up further recommendations of Cardiology WBC count has now normalized
[2018-12-01 13:43] VITALS: TEMP 98
[2018-12-01 13:58] VITALS: BP 114/66; PULSE 73; RESP 9
--- NOTE | 2018-12-01 17:22 | DS ---
HISTORY OF PRESENT ILLNESS: He is in the Intensive Care Unit. He is being discharged today. Prescriptions were written out by his production control manager, Dr. Ramírez, and he will continue with his Janumet for his diabetes at home. Overall, he did well. He is comfortable. No chest pain, no shortness of breath, no abdominal pain. He is walking. Family is present. PHYSICAL EXAMINATION VITAL SIGNS: He has a 98.9 temperature, 79 pulse, 128/75 blood pressure, 18 respiratory rate, 98% O2 sat. HEENT: His head is atraumatic, normocephalic. HEART: Regular rate. LUNGS: Clear to auscultation. ABDOMEN: Soft, obese. EXTREMITIES: No edema. DISCHARGE MEDICATIONS: He is going to go home on Aldactone, Brilinta, Coreg, Ecotrin, Entresto, Lasix, Lipitor and he will go back on his Janumet. LABORATORY DATA: He has a white count of 8.8, hemoglobin 12.5, hematocrit 38, platelets of 204. Sodium 138, potassium 4.2, BUN 21, creatinine 1, GFR is greater than 60, blood sugar is 198. Calcium is 9, total bili is 0.9, AST is 47, ALT is 23, alk phos 52. He will be following up with his production control manager and his primary care doctor. When he gets discharged the next week, he will be going there to see them. He had systemic inflammatory response syndrome secondary to STEMI. He has got diabetes and we will continue with aggressive treatment and care on Herb Marcelino. He is being discharged. Phil Guallpa DO
== END 2018-12-01 14:07 | disposition home or self-care (01) | DRG 246 ==
LOC: ED 08:08 → CATH 08:26 → CCU 09:17
PROVIDERS: ADMIT Family Medicine; ATTEND Internal Medicine Cardiovascular Disease
PROC: 027034Z Dilation of Coronary Artery, One Artery with Drug-eluting Intraluminal Device, Percutaneous Approach (ICD-10-PCS; principal; 2018-11-28)
PROC: B2111ZZ Fluoroscopy of Multiple Coronary Arteries using Low Osmolar Contrast (ICD-10-PCS; 2018-11-28)
PROC: B2151ZZ Fluoroscopy of Left Heart using Low Osmolar Contrast (ICD-10-PCS; 2018-11-28)
PROC: B41F1ZZ Fluoroscopy of Right Lower Extremity Arteries using Low Osmolar Contrast (ICD-10-PCS; 2018-11-28)
PROC: 3E033PZ Introduction of Platelet Inhibitor into Peripheral Vein, Percutaneous Approach (ICD-10-PCS; 2018-11-28)
PROC: 5A09457 Assistance with Respiratory Ventilation, 24-96 Consecutive Hours, Continuous Positive Airway Pressure (ICD-10-PCS; 2018-11-28)
DX: I21.02 ST elevation (STEMI) myocardial infarction involving left anterior descending coronary artery (principal); I50.41 Acute combined systolic (congestive) and diastolic (congestive) heart failure; I42.9 Cardiomyopathy, unspecified; R65.10 Systemic inflammatory response syndrome (SIRS) of non-infectious origin without acute organ dysfunction; Z68.41 Body mass index [BMI] 40.0-44.9, adult; I25.10 Atherosclerotic heart disease of native coronary artery without angina pectoris; I11.0 Hypertensive heart disease with heart failure; J45.909 Unspecified asthma, uncomplicated; E11.9 Type 2 diabetes mellitus without complications; D72.829 Elevated white blood cell count, unspecified; Z85.46 Personal history of malignant neoplasm of prostate; Z92.3 Personal history of irradiation; E66.01 Morbid (severe) obesity due to excess calories; E78.5 Hyperlipidemia, unspecified; I08.0 Rheumatic disorders of both mitral and aortic valves; Z79.4 Long term (current) use of insulin; Z79.899 Other long term (current) drug therapy; Z87.891 Personal history of nicotine dependence; Z88.0 Allergy status to penicillin; Z91.018 Allergy to other foods